=== PATIENT | female | born 1945 | race Caucasian/White ===

== ENCOUNTER 2017-12-11 19:41 | Inpatient (IN) ==
[2017-12-11] MEDS ORDERED: Aspirin 81 MG TAB.CHEW PO ONE (19:46)
--- NOTE | 2017-12-11 19:49 | Emergency Department Note ---
Disposition Clinical Impression: Chest pain Disposition: Admitted As Inpatient Condition: Fair Time of Disposition: 22:46 Chest Pain HPI - General Chief Complaint: ED Chest Pain Stated Complaint: Chest Pain Time Seen by Provider: 12/11/17 19:45 Vital Signs Reviewed: Yes Nursing Notes Reviewed: Yes - History of Present Illness HPI Narrative: 72 yo female presents from home for evaluation of chest pain. Onset 1500 today. Immediately preceeded by profound dyspnea; she was concerned she was going to pass out. Her chest heaviness is located in the left lower sternal boarder. It has been constant. Transiently associated with left jaw pain. Associated with nausea, generalized weakness and shortness of breath with exertion. PMH: HTN, HLD, asthma. ROS: Positive: As above Negative: Fever, chills, palpitations, diaphoresis, unusual back pain, abdominal pain, changes in bowel or bladder habits Severity scale (1-10): 7 - Related Data Home Medications Medication Instructions Recorded Confirmed Aspirin [Lo-Dose Aspirin EC] 81 mg PO DAILY 12/11/17 12/11/17 Atorvastatin [Lipitor] 40 mg PO HS 12/11/17 12/11/17 Chlorthalidone 12.5 mg PO DAILY 12/11/17 12/11/17 Fluticasone/Vilanterol [Breo 1 each IH DAILY 12/11/17 12/11/17 Ellipta 100-25 Mcg INH] Levothyroxine [Synthroid] 125 mcg PO DAILY 12/11/17 12/11/17 Liothyronine Sodium [Cytomel] 5 mcg PO BID 12/11/17 12/11/17 Metoprolol [Lopressor] 25 mg PO BID 12/11/17 12/11/17 Allergies Allergy/AdvReac Type Severity Reaction Status Date / Time povidone-iodine Allergy Blister Verified 12/11/17 20:55 [From Betadine] soap [From Betadine] Allergy Blister Verified 12/11/17 20:55 All systems ED: reviewed and negative except as stated. Review of Systems: As Per HPI Physical Exam Vital Signs Reviewed General: Patient is alert, oriented, and in no acute distress. Head: atraumatic, normocephalic Eye: normal appearance, no scleral icterus, no conjunctival injection ENT: mucous membranes moist, normal external ear exam Neck: normal inspection, trachea midline, full ROM Chest: normal inspection, symmetric chest rise Respiratory: Good respiratory effort. Bilateral breath sounds are clear without wheezing, crackles, or rhonchi. Cardiovascular: Regular rate and rhythm. No clicks, rubs, gallops, or murmors. Normal heart sounds. Abdomen: Bowel sounds present normoactive x-4 quadrants. Abdomen is soft, nondistended, and nontender. No guarding or rebound. No organomegaly noted. Musculoskeletal: Spontaneously moving all extremities. Skin: warm, dry, intact. Neuro: Alert and oriented x4. Sensation light touch intact. Psych: Patient's affect is appropriate for situation. Course Course Narrative: Echo 10/25/17: EV/EV echocardiogram Impressions: LVEF 60%. Moderate left ventricular diastolic dysfunction. RV is dilated in its mid-cavity. Function appears normal by TD velocity. Moderately dilated left atrium. Mild-moderate mitral regurgitation. Mild-moderate tricuspid regurgitation. Estimated RVSP is 46 mmHg. Mild pulmonary hypertension. Chest pain workup. EKG is unremarkable. Chest x-ray is unremarkable. Serum hematology is unremarkable. Serum chemistry shows elevation in creatinine slightly above baseline. I discussed the above with the patient and her multiple family and friends bedside. Discussed my concern of her risk factors and the need for overnight hospital stay for continued evaluation of her symptoms. She is agreeable to admission to hospitalist for continued evaluation of her chest pain. I discussed the patient related to hospitalist, Dr. Delgado, who agrees to accept the patient for chest pain related ACS. EKG dated December 2017 and 19:53 interpreted as sinus rhythm with rate of 77. ID [id number], QTC 4:30. Normal axis. Nonspecific ST-T changes. No previous EKG provided for comparison. Vital Signs Temperature 98.4 F 12/11/17 19:44 Pulse Rate 82 12/11/17 19:44 Respiratory Rate 20 12/11/17 19:44 Blood Pressure 187/90 12/11/17 19:44 O2 Sat by Pulse Oximetry 94 12/11/17 19:44 Temperature 98.4 F 12/11/17 20:03 Pulse Rate 73 12/11/17 21:33 Respiratory Rate 12 12/11/17 22:10 Blood Pressure 128/58 12/11/17 22:10 O2 Sat by Pulse Oximetry 98 09/08/18 21:33 Oxygen Delivery Oxygen Delivery Nasal Cannula Chest Pain - Lab Data Result diagrams: 12/11/17 19:56 12/11/17 19:56 Lab Results 12/11/17 12/11/17 12/11/17 Range/Units 19:46 19:47 19:56 WBC 11.6 H (4.3-11.1) K/mcL RBC 4.14 (3.82-4.97) M/mcL Hgb 12.6 (11.5-15.4) g/dL Hct 37.2 (35.3-44.9) % MCV 89.9 (83.0-100.0) fL MCH 30.4 (28.0-33.3) pg MCHC 33.9 (31.6-35.5) g/dL RDW 13.9 (11.5-14.5) % Plt Count 335 (140-400) K/mcL MPV 8.8 L (9.4-12.4) fL Immature Gran % 0.3 (0-4) % Seg Neutrophils % 71.3 % Lymphocytes % 21.6 % Monocytes % 5.5 % Eosinophils % 1.0 % Basophils % 0.3 % Neutrophils # 8.2 (1.6-8.9) K/mcL Lymphocytes # 2.5 (0.6-4.6) K/mcL Monocytes # 0.6 (0.0-1.3) K/mcL Eosinophils # 0.1 (0.0-0.6) K/mcL Basophils # 0.0 (0.0-0.2) K/mcL PT 13.5 H (9.4-12.1) Seconds INR 1.2 APTT 29.3 (26.0-36.0) Seconds Sodium (136-145) mEq/L Potassium (3.5-5.1) mEq/L Chloride (98-107) mEq/L Carbon Dioxide (23-29) mEq/L BUN (8-23) mg/dL Creatinine (0.60-1.20) mg/dL Est GFR ( Amer) (> 60) Est GFR (Non-Af Amer) (> 60) BUN/Creatinine Ratio (6-26) Glucose (70-105) mg/dL Calculated Osmolality (280-300) Calcium (8.6-10.3) mg/dL Troponin I (< 0.04) ng/mL B-Natriuretic Peptide 99 (Less than 100) pg/mL 12/11/17 Range/Units 19:56 WBC (4.3-11.1) K/mcL RBC (3.82-4.97) M/mcL Hgb (11.5-15.4) g/dL Hct (35.3-44.9) % MCV (83.0-100.0) fL MCH (28.0-33.3) pg MCHC (31.6-35.5) g/dL RDW (11.5-14.5) % Plt Count (140-400) K/mcL MPV (9.4-12.4) fL Immature Gran % (0-4) % Seg Neutrophils % % Lymphocytes % % Monocytes % % Eosinophils % % Basophils % % Neutrophils # (1.6-8.9) K/mcL Lymphocytes # (0.6-4.6) K/mcL Monocytes # (0.0-1.3) K/mcL Eosinophils # (0.0-0.6) K/mcL Basophils # (0.0-0.2) K/mcL PT (9.4-12.1) Seconds INR APTT (26.0-36.0) Seconds Sodium 134 L (136-145) mEq/L Potassium 3.7 (3.5-5.1) mEq/L Chloride 97 L (98-107) mEq/L Carbon Dioxide 26 (23-29) mEq/L BUN 30 H (8-23) mg/dL Creatinine 1.28 H (0.60-1.20) mg/dL Est GFR ( Amer) 50 L (> 60) Est GFR (Non-Af Amer) 41 L (> 60) BUN/Creatinine Ratio 23 (6-26) Glucose 107 H (70-105) mg/dL Calculated Osmolality 285 (280-300) Calcium 8.7 (8.6-10.3) mg/dL Troponin I < 0.03 (< 0.04) ng/mL B-Natriuretic Peptide (Less than 100) pg/mL Heart Score - Score History: Moderately Suspicious EKG: Non Specific repolarisation Disturbance Age: Greater than 65 Risk Factors: Equal/Greater than 3 risk factor or history of atherosclerotic disease Troponin: Less than normal limit HEART Score Total: 6
[2017-12-11 20:27] LABS: Basophils % 0.3 %; Eosinophils # 0.1 K/mcL (0.0-0.6); Hematocrit 37.2 % (35.3-44.9); Hemoglobin 12.6 g/dL (11.5-15.4); Immature Granulocytes % 0.3 % (0-4); Lymphocytes # 2.5 K/mcL (0.6-4.6); Lymphocytes % 21.6 %; Mean Corpuscular HGB Conc 33.9 g/dL (31.6-35.5); Mean Corpuscular Hemoglobin 30.4 pg (28.0-33.3); Mean Corpuscular Volume 89.9 fL (83.0-100.0); Mean Platelet Volume 8.8 fL (9.4-12.4); Monocytes # 0.6 K/mcL (0.0-1.3); Monocytes % 5.5 %; Neutrophils # 8.2 K/mcL (1.6-8.9); Platelet Count 335 K/mcL (140-400); Red Blood Count 4.14 M/mcL (3.82-4.97); Red Cell Distribution Width 13.9 % (11.5-14.5); Segmented Neutrophils % 71.3 %
[2017-12-11 20:32] LABS: INR 1.2; Prothrombin Time 13.5 Seconds (9.4-12.1)
[2017-12-11 20:34] LABS: Activated Partial Thrombo Time 29.3 Seconds (26.0-36.0)
[2017-12-11 20:37] LABS: Troponin I < 0.03 ng/mL (< 0.04)
[2017-12-11 20:38] LABS: BUN/Creatinine Ratio 23 (6-26); Blood Urea Nitrogen 30 mg/dL (8-23); Calcium 8.7 mg/dL (8.6-10.3); Carbon Dioxide 26 mEq/L (23-29); Chloride 97 mEq/L (98-107); Glucose 107 mg/dL (70-105); Osmolality,Calculated 285 (280-300); Potassium 3.7 mEq/L (3.5-5.1); Sodium 134 mEq/L (136-145); eGFR For Non-African Americans 41 (> 60)
[2017-12-11] MEDS: Nitroglycerin 0.4 MG TAB.SUBL SL STA ×2 (20:44→20:56)
[2017-12-11] MEDS ORDERED: *HR* Morphine 2 MG/ML SYRINGE IVP ONE (21:10)
[2017-12-11] MEDS ORDERED: Nitroglycerin 1 INCH/GM PACKET TP ONE (21:10)
[2017-12-11] MEDS ORDERED: Ondansetron 4 MG/2 ML VIAL IVP ONE (21:10)
--- NOTE | 2017-12-11 21:17 | Emergency Department Note ---
Disposition Clinical Impression: Chest pain Qualifiers: Chest pain type: unspecified Qualified Code(s): R07.9 - Chest pain, unspecified Disposition: Admitted As Inpatient Condition: Fair Chest Pain HPI - General Chief Complaint: ED Chest Pain Stated Complaint: Chest Pain Time Seen by Provider: 12/11/17 19:45 - History of Present Illness Severity scale (1-10): 6 - Related Data Home Medications Medication Instructions Recorded Confirmed Aspirin [Lo-Dose Aspirin EC] 81 mg PO DAILY 12/11/17 12/11/17 Atorvastatin [Lipitor] 40 mg PO HS 12/11/17 12/11/17 Chlorthalidone 12.5 mg PO DAILY 12/11/17 12/11/17 Fluticasone/Vilanterol [Breo 1 each IH DAILY 12/11/17 12/11/17 Ellipta 100-25 Mcg INH] Levothyroxine [Synthroid] 125 mcg PO DAILY 12/11/17 12/11/17 Liothyronine Sodium [Cytomel] 5 mcg PO BID 12/11/17 12/11/17 Metoprolol [Lopressor] 25 mg PO BID 12/11/17 12/11/17 Allergies Allergy/AdvReac Type Severity Reaction Status Date / Time povidone-iodine Allergy Blister Verified 12/11/17 20:55 [From Betadine] soap [From Betadine] Allergy Blister Verified 12/11/17 20:55 Chest Pain PMH - Past Medical History Medical history: Reports: asthma, CHF, COPD - Social History Smoking Status: Former smoker Alcohol use: Reports: none Drug use: Reports: none Course Vital Signs Temperature 98.4 F 12/11/17 19:44 Pulse Rate 82 12/11/17 19:44 Respiratory Rate 20 12/11/17 19:44 Blood Pressure 187/90 12/11/17 19:44 O2 Sat by Pulse Oximetry 94 12/11/17 19:44 Temperature 98.6 F 12/11/17 22:46 Pulse Rate 85 12/11/17 22:46 Respiratory Rate 17 12/11/17 22:46 Blood Pressure 131/66 12/11/17 22:46 O2 Sat by Pulse Oximetry 95 12/12/17 00:10 Oxygen Delivery Oxygen Delivery Nasal Cannula Chest Pain - Lab Data Result diagrams: 12/11/17 19:56 12/11/17 19:56 Lab Results 12/11/17 12/11/17 12/11/17 Range/Units 19:46 19:47 19:56 WBC 11.6 H (4.3-11.1) K/mcL RBC 4.14 (3.82-4.97) M/mcL Hgb 12.6 (11.5-15.4) g/dL Hct 37.2 (35.3-44.9) % MCV 89.9 (83.0-100.0) fL MCH 30.4 (28.0-33.3) pg MCHC 33.9 (31.6-35.5) g/dL RDW 13.9 (11.5-14.5) % Plt Count 335 (140-400) K/mcL MPV 8.8 L (9.4-12.4) fL Immature Gran % 0.3 (0-4) % Seg Neutrophils % 71.3 % Lymphocytes % 21.6 % Monocytes % 5.5 % Eosinophils % 1.0 % Basophils % 0.3 % Neutrophils # 8.2 (1.6-8.9) K/mcL Lymphocytes # 2.5 (0.6-4.6) K/mcL Monocytes # 0.6 (0.0-1.3) K/mcL Eosinophils # 0.1 (0.0-0.6) K/mcL Basophils # 0.0 (0.0-0.2) K/mcL PT 13.5 H (9.4-12.1) Seconds INR 1.2 APTT 29.3 (26.0-36.0) Seconds Sodium (136-145) mEq/L Potassium (3.5-5.1) mEq/L Chloride (98-107) mEq/L Carbon Dioxide (23-29) mEq/L BUN (8-23) mg/dL Creatinine (0.60-1.20) mg/dL Est GFR ( Amer) (> 60) Est GFR (Non-Af Amer) (> 60) BUN/Creatinine Ratio (6-26) Glucose (70-105) mg/dL Calculated Osmolality (280-300) Calcium (8.6-10.3) mg/dL Troponin I (< 0.04) ng/mL B-Natriuretic Peptide 99 (Less than 100) pg/mL 12/11/17 Range/Units 19:56 WBC (4.3-11.1) K/mcL RBC (3.82-4.97) M/mcL Hgb (11.5-15.4) g/dL Hct (35.3-44.9) % MCV (83.0-100.0) fL MCH (28.0-33.3) pg MCHC (31.6-35.5) g/dL RDW (11.5-14.5) % Plt Count (140-400) K/mcL MPV (9.4-12.4) fL Immature Gran % (0-4) % Seg Neutrophils % % Lymphocytes % % Monocytes % % Eosinophils % % Basophils % % Neutrophils # (1.6-8.9) K/mcL Lymphocytes # (0.6-4.6) K/mcL Monocytes # (0.0-1.3) K/mcL Eosinophils # (0.0-0.6) K/mcL Basophils # (0.0-0.2) K/mcL PT (9.4-12.1) Seconds INR APTT (26.0-36.0) Seconds Sodium 134 L (136-145) mEq/L Potassium 3.7 (3.5-5.1) mEq/L Chloride 97 L (98-107) mEq/L Carbon Dioxide 26 (23-29) mEq/L BUN 30 H (8-23) mg/dL Creatinine 1.28 H (0.60-1.20) mg/dL Est GFR ( Amer) 50 L (> 60) Est GFR (Non-Af Amer) 41 L (> 60) BUN/Creatinine Ratio 23 (6-26) Glucose 107 H (70-105) mg/dL Calculated Osmolality 285 (280-300) Calcium 8.7 (8.6-10.3) mg/dL Troponin I < 0.03 (< 0.04) ng/mL B-Natriuretic Peptide (Less than 100) pg/mL Attestation Statement - Attestation Attestation: I have discussed the case with the resident/mid level provider. I have personally performed a history, physical exam, and my own medical decision making. I have reviewed the note and agree with the findings and plan. Resident Orlando Catalan. Patient here for evaluation of chest pain and near-syncope. Patient developed chest pain which she describes as it a week in the center of her chest. Patient has had a previous echo but no previous cardiac workup. History concerning for ACS as well as her dizziness and concern for need for syncope evaluation. Patient will be admitted to the hospital service. No acute distress Regular rate and rhythm Clear to auscultation bilaterally Mild edema in the lower extremities Please see resident physician's note for further details and disposition.
[2017-12-11] MEDS ORDERED: Naloxone 0.4 MG/ML INJ IVP PRN (23:44)
[2017-12-11] MEDS ORDERED: 0.9 % Sodium Chloride 1,000 ML IVC ONE (23:55)
--- NOTE | 2017-12-12 00:09 | Internal Med History&Physical ---
Date of Encounter: 12/12/17 Time of Encounter: 23:00 Internal Medicine - H&P: HPI Chief complaint: Chest pain Admitted From: Emergency Dept Plans for Post Hospital Care: Home History of present illness: Ms. Lopez is a 72 year old female Patient states that she was attending a family reunion today when she felt nauseous. She also began having tunnel vision, felt weak and had to sit down. She Went to the rest room, vomited and had an episode of diarrhea. She and her then went home, where she had another episode of weakness and diarrhea. She tried laying down, but noted she was having chest pain with radiation to her neck. She is not sure when exactly she started having chest pain, but it concerned her enough that she went to the ER for further evaluation. She is not aware of any other attendees at the [facility] getting sick. She denies eating undercooked food or potato salad. She was not hydrating well, only drinking a soda or two during the day. She denies having chest pain like this before, but has had near syncopal episodes in the past. In the ER chest x-ray had no acute findings, EKG was NSR with Qtc of 430. No ST elevations. Her BUN and creatinine were elevated and GFR was 41. She denies history of renal problems. Troponins <0.03, BNP of 99. Upon my assessment patient denies chest pain, abdominal pain, nausea, vomiting, dizziness, diarrhea and constipation. Review of her prior medical history shows she had an echocardiogram 10/2017 that showed EF of 60%. She is currently being evaluated for GLORIA. She uses 2L of oxygen at night. Past Med Surg Social Fam HX - Past Medical History Medical history: asthma, CHF, COPD - Past Surgical History Surgical History: appendectomy, knee replacement, thyroidectomy Additional surgical history: wrist surgery for carpal tunnel. - Social History Smoking Status: Former smoker Alcohol use: none Drug use: none Internal Medicine - H&P: Meds Aspirin [Lo-Dose Aspirin EC] 81 mg PO DAILY 12/11/17 [History] Atorvastatin [Lipitor] 40 mg PO HS 12/11/17 [History] Chlorthalidone 12.5 mg PO DAILY 12/11/17 [History] Fluticasone/Vilanterol [Breo Ellipta 100-25 Mcg INH] 1 each IH DAILY 12/11/17 [ History] Levothyroxine [Synthroid] 125 mcg PO DAILY 12/11/17 [History] Liothyronine Sodium [Cytomel] 5 mcg PO BID 12/11/17 [History] Metoprolol [Lopressor] 25 mg PO BID 12/11/17 [History] 3 Allergy/AdvReac Type Severity Reaction Status Date / Time povidone-iodine Allergy Blister Verified 12/11/17 20:55 [From Betadine] soap [From Betadine] Allergy Blister Verified 12/11/17 20:55 All Systems PM: A 10-system review of systems was performed and is negative for pertinent findings except as documented above in the HPI. - Constitutional Vitals: Temp Pulse Resp BP Pulse Ox 98.6 F 85 17 131/66 95 12/11/17 22:46 12/11/17 22:46 12/11/17 22:46 12/11/17 22:46 12/11/17 22:46 General appearance: Present: cooperative, A&O X 3, pleasant, no acute distress, answers questions appropriately Exam: as above - Head Head exam: Present: normal inspection - Eye Eye exam: Present: EOMI, normal appearance - Neck Neck exam general surgery: Present: full ROM - Respiratory Respiratory exam: Present: CTAB. Absent: chest wall tenderness, decreased breath sounds, respiratory distress, wheezes - Cardiovascular Cardiovascular exam: Present: RRR. Absent: diastolic murmur, systolic murmur - GI/Abdominal GI/Abdominal exam: Present: normal bowel sounds, soft. Absent: tenderness - Extremities Exam Extremities exam: Present: pedal edema, warm, radial pulses palpable and symmetrical. Absent: calf tenderness, tenderness Additional comments: mild edema +1 - Neurological Exam Neurological exam: Present: no focal deficits, strengths equal and symetr throughout. Absent: motor sensory deficit, facial droop, speech deficit - Skin Skin exam: Present: dry, normal color, warm Internal Med - H&P Results - Labs CBC & Chem 7: 12/12/17 02:12 12/12/17 01:25 - Assessment and plan (1) Chest pain Current Visit: Yes Status: Acute Assessment and plan: Currently pain resolved. Recent echocardiogram from 2 months ago showed EF of 60 %. Continue to trend troponins spray blender Consider stress test in the morning Qualifiers: Chest pain type: unspecified Qualified Code(s): R07.9 - Chest pain, unspecified (2) Near syncope Current Visit: Yes Status: Acute Assessment and plan: Could be secondary to dehydration, patient was out at a picnic all day and not adequate fluids. Patient's BUN and creatinine elevated on initial lab work in ER. Orthostatic vitals in AM IV fluids tonight Continue to monitor Repeat labs in the morning. (3) Pulmonary nodule Current Visit: Yes Status: Acute Assessment and plan: As evidenced by patient's chest CT from 09/2017, she as multiple nodules both calcified and non-calcified. Follow radiology recommendations for repeat CT in 6-12 months. (4) Hypothyroid Current Visit: Yes Status: Acute Assessment and plan: continue home meds. Qualifiers: Qualified Code(s): E89.0 - Postprocedural hypothyroidism (5) HLD (hyperlipidemia) Current Visit: Yes Status: Acute Assessment and plan: Continue home meds. Qualifiers: Hyperlipidemia type: mixed hyperlipidemia Qualified Code(s): E78.2 - Mixed hyperlipidemia - Time Spent With Patient Total time spent is greater than 50% in coordination of care (as documented) at patient's floor/unit and/or counseling patient: 25 - 35 minutes
[2017-12-12 02:02] LABS: Calcium 8.4 mg/dL (8.6-10.3); Potassium 3.6 mEq/L (3.5-5.1)
[2017-12-12 02:21] LABS: Hematocrit 34.2 % (35.3-44.9); Hemoglobin 11.4 g/dL (11.5-15.4); Mean Corpuscular HGB Conc 33.3 g/dL (31.6-35.5); Mean Corpuscular Hemoglobin 30.5 pg (28.0-33.3); Mean Corpuscular Volume 91.4 fL (83.0-100.0); Mean Platelet Volume 8.7 fL (9.4-12.4); Platelet Count 272 K/mcL (140-400); Red Blood Count 3.74 M/mcL (3.82-4.97)
[2017-12-12] MEDS: *HR* Heparin 5,000 UNIT/ML VIAL SQ SCH ×2 (06:35→17:13)
[2017-12-12] MEDS: Aspirin Enteric Coated 81 MG Tablet PO SCH (09:16)
[2017-12-12] MEDS ORDERED: Acetaminophen 325 MG TABLET PO PRN (12:18)
[2017-12-12] MEDS ORDERED: *HR* HYDROcodone/Acet 5/325 mg TABLET PO PRN (12:18)
[2017-12-12] MEDS ORDERED: Nitroglycerin 0.4 MG TAB.SUBL SL PRN (12:19)
--- NOTE | 2017-12-12 12:28 | Internal Med Progress Note ---
Hospitalist Progress Note - Encounter Date of Encounter: 12/12/17 Time of Encounter: 08:20 - Subjective Interval History: Patient is awake and alert. Denies any chest pain at this time. Her chest pain last night resolved after she received nitroglycerin. She describes it as a pressure sensation. She denies any shortness of breath at this time. No nausea or vomiting. - Exam Vitals: Temp Pulse Resp BP Pulse Ox 99.0 F 59 17 143/70 93 12/12/17 11:56 12/12/17 11:56 12/12/17 11:56 12/12/17 11:56 12/12/17 11:56 Exam: General: Patient is alert, no acute distress, oriented x 3 Respiratory: Good respiratory effort. Normal breath sounds. Decreased air entry at both bases. No wheezing or crackles. Cardiovascular: Regular rate and rhythm. s1 and s2 normal No clicks, rubs, gallops, or murmurs. No pedal edema Abdomen: Abdomen is soft, nontender. Bowel sounds are present Musculoskeletal: Spontaneously moving all extremities Skin: warm, dry, intact. Neuro: Alert oriented x 3 normal cranial nerves, no focal deficits - Assessment and Plan (1) Chest pain Current Visit: Yes Status: Acute Assessment and Plan: Precordial chest pressure. Atypical but patient does have risk factors. We will obtain cardiac stress test in morning. Keep nothing by mouth after midnight. Patient had recent echocardiogram which showed normal ejection fraction. Troponins have been negative. Continue monitoring with telemetry. (2) HLD (hyperlipidemia) Current Visit: Yes Status: Chronic Assessment and Plan: Will check lipid profile. Continue Lipitor (3) HTN (hypertension) Current Visit: Yes Status: Chronic Assessment and Plan: Blood pressure was severely elevated initially but has improved. We will continue current medications including chlorthalidone and metoprolol. (4) Hypothyroid Current Visit: Yes Status: Chronic Assessment and Plan: Continue levothyroxine and liothyronine (5) Near syncope Current Visit: Yes Status: Acute Assessment and Plan: No new episodes of syncope. Continue to monitor with telemetry. Check orthostatic vital signs and carotid Dopplers. (6) Pulmonary nodule Current Visit: Yes Status: Acute Assessment and Plan: Patient will need repeat CT scan in 6-12 months. - Time Spent with Patient Total time spent is greater than 50% in coordination of care (as documented) at patient's floor/unit and/or counseling patient: Internal Medicine: Result - Labs CBC & Chem 7: 12/12/17 02:12 12/12/17 01:25 Labs: Short CBC 12/12/17 Range/Units 02:12 WBC 9.6 (4.3-11.1) K/mcL Hgb 11.4 L (11.5-15.4) g/dL Hct 34.2 L (35.3-44.9) % Plt Count 272 (140-400) K/mcL BMP 12/12/17 01:25 Sodium 136 Potassium 3.6 Chloride 98 Carbon Dioxide 29 BUN 32 H Creatinine 1.15 Glucose 123 H Calcium 8.4 L Cardiac Enzymes 12/12/17 12/12/17 Range/Units 01:25 08:11 Troponin I < 0.03 < 0.03 (< 0.04) ng/mL - ABG Interpretation ABG results: PT/INR, D-dimer PT 13.5 Seconds (9.4-12.1) H 12/11/17 19:46 Consult Discharge Plan - Plan Referrals: Donna Catalan MD [Primary Care Provider] - Tavares Hunter DO [Family Provider] - (1) Chest pain Qualifiers: Chest pain type: precordial pain Qualified Code(s): R07.2 - Precordial pain (2) HLD (hyperlipidemia) Qualifiers: Hyperlipidemia type: mixed hyperlipidemia Qualified Code(s): E78.2 - Mixed hyperlipidemia (3) HTN (hypertension) Qualifiers: Hypertension type: essential hypertension Qualified Code(s): I10 - Essential (primary) hypertension (4) Hypothyroid Qualifiers: Qualified Code(s): E89.0 - Postprocedural hypothyroidism
[2017-12-13 05:22] LABS: Chol/HDL Ratio 4.3 (0-4.9)
[2017-12-13] MEDS ORDERED: Regadenoson 0.4 MG/5 ML SYRINGE IVP ONE (05:46)
[2017-12-13] MEDS: *HR* Heparin 5,000 UNIT/ML VIAL SQ SCH ×2 (06:08→18:04)
--- NOTE | 2017-12-13 09:01 | Internal Med Progress Note ---
<Marty Dunbar - Last Filed: 12/13/17 11:48> Hospitalist Progress Note - Encounter Date of Encounter: 12/13/17 Time of Encounter: 10:30 - Exam Vitals: Temp Pulse Resp BP Pulse Ox 99.3 F 67 16 127/73 93 12/13/17 11:08 12/13/17 11:08 12/13/17 11:08 12/13/17 11:08 12/13/17 11:08 - Assessment and Plan (1) Chest pain Current Visit: Yes Status: Acute (2) HLD (hyperlipidemia) Current Visit: Yes Status: Chronic (3) HTN (hypertension) Current Visit: Yes Status: Chronic (4) Hypothyroid Current Visit: Yes Status: Chronic (5) Near syncope Current Visit: Yes Status: Acute (6) Pulmonary nodule Current Visit: Yes Status: Acute - Time Spent with Patient Total time spent is greater than 50% in coordination of care (as documented) at patient's floor/unit and/or counseling patient: Internal Medicine: Result - Labs CBC & Chem 7: 12/12/17 02:12 12/13/17 09:36 Labs: BMP 12/13/17 09:36 Sodium 135 L Potassium 3.8 Chloride 98 Carbon Dioxide 31 H BUN 15 Creatinine 0.83 Glucose 151 H Calcium 8.5 L - ABG Interpretation ABG results: PT/INR, D-dimer PT 13.5 Seconds (9.4-12.1) H 12/11/17 19:46 Consult Discharge Plan - Plan Referrals: Tavares Hunter DO [Family Provider] - Donna Catalan MD [Primary Care Provider] - - Attending Attestation I saw evaluated and examined this patient and my medical decision-making was reviewed with the Resident Physician, Kendall Smith. I agree with the documented findings, disposition and treatment plan as described except to any changes set forth below. We independently had [id number] contact with the patient. Patient complains of chest pressure that began when she was having her stress test earlier today. It is central in location. Not radiating at this time. No new episodes of nausea or vomiting. No dizziness or lightheadedness. No palpitations. On exam, patient is awake and alert. Heart sounds are normal. Breath sounds are also normal. No lower extremity edema. No abdominal tenderness. Chest pain: Precordial chest pressure. Stress test in progress. Troponins have been negative. Treat symptomatically with nitroglycerin Essential hypertension: Well controlled at this time. Hyperlipidemia: continue Lipitor. <Kendall Smith - Last Filed: 12/13/17 17:51> Hospitalist Progress Note - Encounter Date of Encounter: 12/13/17 - Subjective Interval History: Interval history: Patient presented to the ED 12/11 with 1 day of nausea/vomiting/diarrhea at a family picnic. No known sick contacts/others sick after picnic. She complained of chest pain radiating to the neck. She was evaluated in the ED for ACS with negative troponin, CXR showed stable cardiomegaly, BNP 99. Per ROS: she denied orthopnea, LE swelling, shortness of breath. ECHO 2 months ago shows EF of 60%. She was admitted for chest pain rule-out. At the time of my evaluation, patient complains of a non-productive cough, decreased chest symptoms otherwise. Denies fevers, n/v/d, or abdominal pain. She recently underwent stress testing, results pending. - Exam Vitals: Temp Pulse Resp BP Pulse Ox 98.2 F 58 17 104/47 94 12/13/17 07:02 12/13/17 07:02 12/13/17 07:02 12/13/17 07:02 12/13/17 07:02 Exam: General: Patient is alert, no acute distress, oriented x 3 Head: normocephalic, atraumatic Respiratory: Good respiratory effort. Normal breath sounds. Diminished breath sounds bilateral bases. No wheezing or crackles. Cardiovascular: Regular rate and rhythm. s1 and s2 normal No clicks, rubs, gallops, or murmurs. No pedal edema no jvd. Abdomen: Abdomen is soft, nontender. Bowel sounds are present Musculoskeletal: Spontaneously moving all extremities Skin: warm, dry, intact. Neuro: Alert oriented x 3, no slurring of speech, facial droop - Assessment and Plan (1) Chest pain Current Visit: Yes Status: Acute Assessment and Plan: Patient denies chest pain, shortness of breath, or dizziness Troponin has been negative, part 1 of stress test completed today, after which she says she feels okay, no worsening of admission symptoms. LDL 80, hgb a1c 5.6 ECG shows NSR with nonspecific st changes. CXR shows stable cardiomegaly, bnp 99 echo 10/25/17 LVEF of 60% P: Continue ACS workup Two part stress test; NPO at midnight for second half tomorrow AM (2) Near syncope Current Visit: Yes Status: Acute Assessment and Plan: Carotid doppler with 40-59% stenosis bilaterally, unlikely contributor. Recent ECHO with preserved EF. Continue telemetry. (3) Pulmonary nodule Current Visit: Yes Status: Acute Assessment and Plan: 3.7mm nodule noncalcified, nonspecific Repeat CT in 6-12 months (4) Hypothyroid Current Visit: Yes Status: Chronic Assessment and Plan: Continue synthetic T4 and T3 (5) HLD (hyperlipidemia) Current Visit: Yes Status: Chronic Assessment and Plan: LDL therapeutic range Continue statin (6) HTN (hypertension) Current Visit: Yes Status: Chronic Assessment and Plan: Normotensive; continuing bb and thiazide DVT Prophylaxis: heparin sq q12h - Time Spent with Patient Total time spent is greater than 50% in coordination of care (as documented) at patient's floor/unit and/or counseling patient: Internal Medicine: Result - Labs CBC & Chem 7: 12/12/17 02:12 12/13/17 09:36 - ABG Interpretation ABG results: PT/INR, D-dimer PT 13.5 Seconds (9.4-12.1) H 12/11/17 19:46 <Marty Dunbar - Last Filed: 12/13/17 11:48> (1) Chest pain Qualifiers: Chest pain type: precordial pain Qualified Code(s): R07.2 - Precordial pain (2) HLD (hyperlipidemia) Qualifiers: Hyperlipidemia type: mixed hyperlipidemia Qualified Code(s): E78.2 - Mixed hyperlipidemia (3) HTN (hypertension) Qualifiers: Hypertension type: essential hypertension Qualified Code(s): I10 - Essential (primary) hypertension (4) Hypothyroid Qualifiers: Qualified Code(s): E89.0 - Postprocedural hypothyroidism <Kendall Smith - Last Filed: 12/13/17 17:51> (1) Chest pain Qualifiers: Chest pain type: precordial pain Qualified Code(s): R07.2 - Precordial pain (5) HLD (hyperlipidemia) Qualifiers: Hyperlipidemia type: mixed hyperlipidemia Qualified Code(s): E78.2 - Mixed hyperlipidemia (6) HTN (hypertension) Qualifiers: Hypertension type: essential hypertension Qualified Code(s): I10 - Essential (primary) hypertension
[2017-12-13 10:22] LABS: BUN/Creatinine Ratio 18 (6-26); Blood Urea Nitrogen 15 mg/dL (8-23); Calcium 8.5 mg/dL (8.6-10.3); Carbon Dioxide 31 mEq/L (23-29); Chloride 98 mEq/L (98-107); Glucose 151 mg/dL (70-105); Osmolality,Calculated 284 (280-300); Potassium 3.8 mEq/L (3.5-5.1); Sodium 135 mEq/L (136-145); eGFR For Non-African Americans > 60 (> 60)
[2017-12-13 10:56] LABS: Estimated Average Glucose 114 mg/dl; Hemoglobin A1C 5.6 %
[2017-12-13] MEDS: Aspirin Enteric Coated 81 MG Tablet PO SCH (11:39)
[2017-12-13] MEDS: Benzonatate 100 MG CAPSULE PO PRN (15:03)
[2017-12-14 05:14] LABS: Hematocrit 34.6 % (35.3-44.9); Hemoglobin 11.1 g/dL (11.5-15.4); Mean Corpuscular HGB Conc 32.1 g/dL (31.6-35.5); Mean Corpuscular Hemoglobin 29.7 pg (28.0-33.3); Mean Corpuscular Volume 92.5 fL (83.0-100.0); Mean Platelet Volume 8.9 fL (9.4-12.4); Platelet Count 239 K/mcL (140-400); Red Blood Count 3.74 M/mcL (3.82-4.97); Red Cell Distribution Width 13.8 % (11.5-14.5)
[2017-12-14 05:32] LABS: BUN/Creatinine Ratio 21 (6-26); Blood Urea Nitrogen 17 mg/dL (8-23); Calcium 8.3 mg/dL (8.6-10.3); Carbon Dioxide 30 mEq/L (23-29); Chloride 98 mEq/L (98-107); Glucose 94 mg/dL (70-105); Osmolality,Calculated 285 (280-300); Potassium 3.6 mEq/L (3.5-5.1); Sodium 137 mEq/L (136-145); eGFR For Non-African Americans > 60 (> 60)
[2017-12-14] MEDS: *HR* Heparin 5,000 UNIT/ML VIAL SQ SCH (06:14)
[2017-12-14] MEDS: Benzonatate 100 MG CAPSULE PO PRN ×2 (08:48→18:32)
[2017-12-14] MEDS: Aspirin Enteric Coated 81 MG Tablet PO SCH (08:49)
--- NOTE | 2017-12-14 13:20 | Cardiology Consult Note ---
<Anna,Dominick R - Last Filed: 12/14/17 13:17> Date of Encounter: 12/14/17 Time of Encounter: 13:17 Assessment and Plan (1) Abnormal stress test Current Visit: Yes Status: Acute Admitted with chest pressure with radiation to left neck, associated n/v/d, symptom relief with nitro and morphine. Recurrent CP yesterday afternoon. Troponins negative. TTE EF preserved, moderate LVDD, mild-moderate MR and TR. 2 day stress test obtained--possible ischemia in mid-distal inferolateral wall and ischemia could not be excluded in mid anterior wall. Risk factors for CAD include obesity, HTN, HLD, prior tobacco abuse and premature family hx. Reports mother had [place] in 40s and son from [place] in his 40s. Pt is already on ASA, Statin, BB at home. Discussed medical management and starting [facility] with close outpt follow-up vs. [facility]. R/B/A discussed. Pt prefers to proceed with [facility] inpt. [facility] today. Continue to follow. (2) Chest pain Current Visit: Yes Status: Acute As above, abnormal stress test. LHC today. Qualifiers: Chest pain type: unspecified Qualified Code(s): R07.9 - Chest pain, unspecified Discussion w patient/family: The assessment and plan as outlined above was discussed with the patient and/or family members who expressed understanding and agreement. All questions were answered. Thank you for involving us in the care of your patient. Please call with any questions. I will discuss all the above with Dr. Morales and make changes as necessary History of Present Illness Consult date: 12/14/17 Requesting physician: Ramiro Luo Consult reason: abnormal stress Chief complaint: chest pain, n/v/d, near syncope History of present illness: Ms. Lopez is a 72 year old female with PMH of COPD on nocturnal O2 2L, hx of tobacco abuse, HTN, HLD, hypothyroidism that was attending a family reunion 2 days ago when she felt nauseous, began having tunnel vision, felt weak and had to sit down. She Went to the rest room, vomited and had an episode of diarrhea. She and her then went home, where she had more episodes of vomiting and diarrhea, then developed chest pressure with radiation to her neck. CP was relieved with nitro and morphine in ED. She had recurrent CP yesterday with radiation to left neck. Troponins negative. 2 day stress test obtained-- possible ischemia in mid-distal inferolateral wall and ischemia could not be excluded in mid anterior wall. Cardiology consulted for further recs. Past Med Surg Social Fam HX - Past Medical History Medical history: asthma, CHF, COPD - Past Surgical History Surgical History: appendectomy, knee replacement, thyroidectomy Additional surgical history: wrist surgery for carpal tunnel. - Social History Smoking Status: Former smoker Alcohol use: none Drug use: none Medications and Allergies Aspirin [Lo-Dose Aspirin EC] 81 mg PO DAILY 12/11/17 [History] Atorvastatin [Lipitor] 40 mg PO HS 12/11/17 [History] Chlorthalidone 12.5 mg PO DAILY 12/11/17 [History] Fluticasone/Vilanterol [Breo Ellipta 100-25 Mcg INH] 1 each IH DAILY 12/11/17 [ History] Levothyroxine [Synthroid] 125 mcg PO DAILY 12/11/17 [History] Liothyronine Sodium [Cytomel] 5 mcg PO BID 12/11/17 [History] Metoprolol [Lopressor] 25 mg PO BID 12/11/17 [History] 3 Allergy/AdvReac Type Severity Reaction Status Date / Time povidone-iodine Allergy Blister Verified 12/11/17 20:55 [From Betadine] soap [From Betadine] Allergy Blister Verified 12/11/17 20:55 All Systems Review: The remainder of the systems were reviewed and are negative - Cardiovascular Cardiovascular: as per HPI, chest pain at rest, chest pain with exertion, dyspnea at rest, dyspnea on exertion, radiating jaw, neck or arm pain - Respiratory Respiratory: cough, dyspnea Physical Examination Vital Signs, Last 4 Hours Temp Pulse Resp BP Pulse Ox 12/14/17 10:43 98.1 F 59 16 153/67 93 Vital Signs Temp Pulse Resp BP Pulse Ox 12/14/17 10:43 98.1 F 59 16 153/67 93 12/14/17 07:49 97.8 F 63 18 161/56 92 12/14/17 03:47 98.6 F 63 16 117/68 98 12/13/17 23:11 98.5 F 67 16 133/77 95 12/13/17 18:46 98.8 F 67 16 115/60 91 12/13/17 16:13 98.2 F 61 17 117/68 92 Intake and Output 12/13/17 12/14/17 12/14/17 23:59 07:59 15:59 Output Total 300 / 300 Balance -300 / -300 Output: Urine 300 / 300 Other: Meal npo Weight 130.4 kg Patient Weight 12/14/17 23:59 Weight 130.4 kg General: Conversant, No Apparent Distress HEENT: Atraumatic, Normocephaly, Mucus Membranes Moist Neck: No JVD, Normal carotid pulses Cardiac: Reg Rate and Rhythm, Normal S1 and S2, No Murmur Lungs: Normal Breath Sounds, No Wheeze, Rales, Rhonchi Neuro: Alert and responsive, No focal deficits noted Abdomen: Soft, Non-Tender Skin: No rashes noted on visualized skin Musculoskeletal: No Chest Wall Tenderness Extremities: Other (mild LE edema) Results 12/14/17 04:01 12/14/17 04:01 Lab Results 12/14/17 12/14/17 04:01 04:01 WBC 5.7 Hgb 11.1 L Hct 34.6 L Plt Count 239 Sodium 137 Potassium 3.6 Chloride 98 Carbon Dioxide 30 H BUN 17 Creatinine 0.82 Glucose 94 Calcium 8.3 L Short CBC 12/14/17 Range/Units 04:01 WBC 5.7 (4.3-11.1) K/mcL Hgb 11.1 L (11.5-15.4) g/dL Hct 34.6 L (35.3-44.9) % Plt Count 239 (140-400) K/mcL BMP 12/14/17 Range/Units 04:01 Sodium 137 (136-145) mEq/L Potassium 3.6 (3.5-5.1) mEq/L Chloride 98 (98-107) mEq/L Carbon Dioxide 30 H (23-29) mEq/L BUN 17 (8-23) mg/dL Creatinine 0.82 (0.60-1.20) mg/dL Glucose 94 (70-105) mg/dL Calcium 8.3 L (8.6-10.3) mg/dL Active Medications Acetaminophen (Tylenol) 650 mg PO Q6HR PRN PRN Reason: Mild Pain/Fever Stop: 06/13/18 12:19 Hydrocodone Bitart/Acetaminophen (Volga 5-325 Mg) 1 tab PO Q6HR PRN PRN Reason: Moderate Pain Stop: 06/13/18 12:19 Last Admin: 12/12/17 12:53 Dose: 1 tab Aspirin (Aspirin Ec) 81 mg PO DAILY [facility] Stop: 06/13/18 09:01 Last Admin: 12/14/17 08:49 Dose: 81 mg Atorvastatin Calcium (Lipitor) 40 mg PO HS [facility] Stop: 06/13/18 21:01 Last Admin: 12/13/17 21:20 Dose: 40 mg Benzonatate (Tessalon) 100 mg PO TID PRN PRN Reason: Cough Stop: 06/14/18 13:42 Last Admin: 12/14/17 08:48 Dose: 100 mg Chlorthalidone (Chlorthalidone) 12.5 mg PO DAILY [facility] Stop: 06/13/18 09:01 Last Admin: 12/14/17 08:48 Dose: 12.5 mg Guaifenesin (Mucinex) 600 mg PO BID PRN PRN Reason: Congestion Stop: 06/14/18 10:55 Heparin Sodium (Porcine) (Heparin) 5,000 unit SQ Q12HCO [facility] Stop: 06/13/18 06:01 Last Admin: 12/14/17 06:14 Dose: 5,000 unit Levothyroxine Sodium (Synthroid) 125 mcg PO 0630 [facility] Stop: 06/13/18 06:31 Last Admin: 12/14/17 06:14 Dose: 125 mcg Liothyronine Sodium (Cytomel) 5 mcg PO DAILY [facility] Stop: 06/14/18 09:01 Last Admin: 12/14/17 08:50 Dose: 5 mcg Metoprolol Tartrate (Lopressor) 25 mg PO BID [facility] Stop: 06/13/18 09:01 Last Admin: 12/14/17 08:49 Dose: 25 mg Naloxone HCl (Narcan) 0.4 mg IVP Q2MIN PRN PRN Reason: SEE COMMENTS Stop: 06/12/18 23:45 Nitroglycerin (Nitroglycerin) 0.4 mg SL Q5MIN PRN PRN Reason: Chest Pain Stop: 06/13/18 12:20 - Imaging and Cardiology Stress Test: report reviewed Echo: report reviewed - EKG Interpretation EKG results cardiology: personally reviewed Consult Discharge Plan - Plan Referrals: Tavares Hunter DO [Family Provider] - Yuki Lockhart MD [Partnered Physician] - (office will call patient at home with follow up appointment) Donna Catalan MD [Primary Care Provider] - <Luan Morales - Last Filed: 12/14/17 19:16> Date of Encounter: 12/14/17 - Attending Attestation Patient was seen and evaluated independently by me. Findings, assessment and plan were discussed at length with patient, questions answered. Agree with nurse practitioner's documentation. Addition as follows, 72 yoCF ho hypertension hyperlipidemia hypothyroidism smoking COPD. P/w chest pressure with nausea vomiting. Negative troponin. Nuclear stress test positive for a minute to distal inferolateral wall ischemia, preserved EF. Proceeded with [facility]: RCA disease, TRACY x1 to distal RCA. Currently no complaint. Hypertensive 140s to 160s. Right groin no hematoma. Review of home medications with patient and current meds with bed nurse. A: unstable angina, single-vessel CAD, RCA DESx1, hypertension P: c/w DAPT, high intensity statin Continue with home BP meds (irbesartan 300 switch to losartan 100 qd during hospital stay) Re-eval in the morning. Cardiac rehabilitation Luan Morales MD, PhD Assessment and Plan Discussion w patient/family: The assessment and plan as outlined above was discussed with the patient and/or family members who expressed understanding and agreement. All questions were answered. Thank you for involving us in the care of your patient. Please call with any questions. History of Present Illness History of present illness: Ms. Lopez is a 72 year old female All Systems Review: The remainder of the systems were reviewed and are negative Results 12/14/17 04:01 12/14/17 04:01 Lab Results 12/14/17 12/14/17 04:01 04:01 WBC 5.7 Hgb 11.1 L Hct 34.6 L Plt Count 239 Sodium 137 Potassium 3.6 Chloride 98 Carbon Dioxide 30 H BUN 17 Creatinine 0.82 Glucose 94 Calcium 8.3 L
--- NOTE | 2017-12-14 13:29 | Internal Med Progress Note ---
<Kendall Smith - Last Filed: 12/14/17 14:54> Hospitalist Progress Note - Encounter Date of Encounter: 12/14/17 Time of Encounter: 09:30 - Subjective Interval History: Interval history: 12/14 Patient had no acute events overnight. She currently denies shortness of breath or chest pain. She is s/p part 2 of stress testing; report shows perfusion defect in inferolateral and mid-anterior wall; cardiology to see patient this afternoon. 12/13 Patient presented to the ED 12/11 with 1 day of nausea/vomiting/diarrhea at a family picnic. No known sick contacts/others sick after picnic. She complained of chest pain radiating to the neck. She was evaluated in the ED for ACS with negative troponin, CXR showed stable cardiomegaly, BNP 99. Per ROS: she denied orthopnea, LE swelling, shortness of breath. ECHO 2 months ago shows EF of 60%. She was admitted for chest pain rule-out. At the time of my evaluation, patient complains of a non-productive cough, decreased chest symptoms otherwise. Denies fevers, n/v/d, or abdominal pain. She recently underwent stress testing, results pending. - Exam Vitals: Temp Pulse Resp BP Pulse Ox 98.1 F 59 16 153/67 93 12/14/17 10:43 12/14/17 10:43 12/14/17 10:43 12/14/17 10:43 12/14/17 10:43 Exam: General: Patient is alert, no acute distress, oriented x 3, answers questions appropriately. Head: normocephalic, atraumatic Respiratory: Good respiratory effort. Normal breath sounds. Diminished breath sounds bilateral bases. No wheezing or crackles. Cardiovascular: Regular rate and rhythm. s1 and s2 normal No clicks, rubs, gallops, or murmurs. No pedal edema no jvd. Abdomen: Abdomen is soft, nontender. Bowel sounds are present Ext/Musculoskeletal: Spontaneously moving all extremities, no calf tenderness Skin: warm, dry, intact, no cyanosis, no pitting edema Neuro: Alert oriented x 3, no slurring of speech or facial droop - Assessment and Plan (1) Chest pain Current Visit: Yes Status: Acute Assessment and Plan: s/p 2 part stress test Gated EF of >70% Perfusion defect of inferolateral and mid-anterior wall P: Cardiology to see patient this afternoon - eval for LHC versus conservative management (2) Near syncope Current Visit: Yes Status: Acute Assessment and Plan: Recent hx of N/V/D with tunnel vision ACS risk factors of hx of CHF, COPD, smoke history, age, obesity Carotid doppler shows mild-mod stenosis bilaterally P: As above for cardiac workup (3) Pulmonary nodule Current Visit: Yes Status: Acute Assessment and Plan: F/u in 6-12 months for 3.7mm noncalcified nodule (4) Hypothyroid Current Visit: Yes Status: Chronic Assessment and Plan: Continue synthetic T4 and T3 (5) HLD (hyperlipidemia) Current Visit: Yes Status: Chronic Assessment and Plan: LDL well controlled Continue statin (6) HTN (hypertension) Current Visit: Yes Status: Chronic Assessment and Plan: on bb and thiazide continuing - Time Spent with Patient Total time spent is greater than 50% in coordination of care (as documented) at patient's floor/unit and/or counseling patient: Internal Medicine: Result - Labs CBC & Chem 7: 12/14/17 04:01 12/14/17 04:01 Labs: Short CBC 12/14/17 Range/Units 04:01 WBC 5.7 (4.3-11.1) K/mcL Hgb 11.1 L (11.5-15.4) g/dL Hct 34.6 L (35.3-44.9) % Plt Count 239 (140-400) K/mcL BMP 12/14/17 04:01 Sodium 137 Potassium 3.6 Chloride 98 Carbon Dioxide 30 H BUN 17 Creatinine 0.82 Glucose 94 Calcium 8.3 L - ABG Interpretation ABG results: PT/INR, D-dimer PT 13.5 Seconds (9.4-12.1) H 12/11/17 19:46 Consult Discharge Plan - Plan Referrals: Tavares Hunetr DO [Family Provider] - Yuki Lockhart MD [Partnered Physician] - (office will call patient at home with follow up appointment) Donna Catalan MD [Primary Care Provider] - <Ramiro Luo - Last Filed: 12/14/17 17:34> Hospitalist Progress Note - Encounter Date of Encounter: 12/14/17 - Exam Vitals: Temp Pulse Resp BP Pulse Ox 98.1 F 59 16 153/67 93 12/14/17 10:43 12/14/17 10:43 12/14/17 10:43 12/14/17 10:43 12/14/17 10:43 - Assessment and Plan (1) Chest pain Current Visit: Yes Status: Acute (2) Near syncope Current Visit: Yes Status: Acute (3) Pulmonary nodule Current Visit: Yes Status: Acute (4) Hypothyroid Current Visit: Yes Status: Chronic (5) HLD (hyperlipidemia) Current Visit: Yes Status: Chronic (6) HTN (hypertension) Current Visit: Yes Status: Chronic - Time Spent with Patient Total time spent is greater than 50% in coordination of care (as documented) at patient's floor/unit and/or counseling patient: Internal Medicine: Result - Labs CBC & Chem 7: 12/14/17 04:01 12/14/17 04:01 Labs: Short CBC 12/14/17 Range/Units 04:01 WBC 5.7 (4.3-11.1) K/mcL Hgb 11.1 L (11.5-15.4) g/dL Hct 34.6 L (35.3-44.9) % Plt Count 239 (140-400) K/mcL BMP 12/14/17 04:01 Sodium 137 Potassium 3.6 Chloride 98 Carbon Dioxide 30 H BUN 17 Creatinine 0.82 Glucose 94 Calcium 8.3 L - ABG Interpretation ABG results: PT/INR, D-dimer PT 13.5 Seconds (9.4-12.1) H 12/11/17 19:46 - Attending Attestation I examined this patient and my medical decision-making was reviewed with the Resident Physician on 12/14/17. I agree with the documented findings, disposition and treatment plan as described except to the extent set forth below. Ms Lopez is currently in observation for chest pain. She has a positive stress test and is to have [facility]. She remains moderate to high risk. Ms Lopez has no pain at this time. No fever or chills. Stress test positive. Cardiology to see and LHC today. No GI issues. Exam alert Comfortable sitting up Mucus membranes dry Heart reg No wheeze Abd soft No edema I/P 1. [place] 2. CAD LHC today Probable d/c tomorrow. <Kendall Smith - Last Filed: 12/14/17 14:54> (1) Chest pain Qualifiers: Chest pain type: unspecified Qualified Code(s): R07.9 - Chest pain, unspecified (5) HLD (hyperlipidemia) Qualifiers: Hyperlipidemia type: mixed hyperlipidemia Qualified Code(s): E78.2 - Mixed hyperlipidemia (6) HTN (hypertension) Qualifiers: Hypertension type: essential hypertension Qualified Code(s): I10 - Essential (primary) hypertension <Ramiro Luo - Last Filed: 12/14/17 17:34> (1) Chest pain Qualifiers: Chest pain type: chest pain due to myocardial ischemia Ischemic chest pain type: unstable angina pectoris Qualified Code(s): I20.0 - Unstable angina (4) Hypothyroid Qualifiers: Hypothyroidism type: acquired Qualified Code(s): E03.9 - Hypothyroidism, unspecified (5) HLD (hyperlipidemia) Qualifiers: Hyperlipidemia type: mixed hyperlipidemia Qualified Code(s): E78.2 - Mixed hyperlipidemia (6) HTN (hypertension) Qualifiers: Hypertension type: essential hypertension Qualified Code(s): I10 - Essential (primary) hypertension
[2017-12-14] MEDS ORDERED: Nitroglycerin 1,000 MCG/10 ML VIAL IV ONE (13:32)
[2017-12-14] MEDS ORDERED: ISOVUE-370 200 ML INFUS..BTL IV ONE ×2 (13:32→14:50)
[2017-12-14] MEDS ORDERED: 0.9 % Sodium Chloride 1,000 ML ONE ×2 (13:32→13:38)
[2017-12-14] MEDS ORDERED: *HR* Heparin 10,000 UNIT/10 ML VIAL ONE (13:32)
[2017-12-14] MEDS ORDERED: Heparin 1,000 UNITS/500 mL 500 ML ONE (13:32)
--- NOTE | 2017-12-14 13:45 | Pre-Sedation Evaluation ---
Pre-sedation evaluation - Pre-sedation checklist Date of procedure: 12/14/17 Procedure: [facility] Recent Vitals: Last Vital Signs Temp 98.1 F 12/14/17 10:43 Pulse 59 12/14/17 10:43 Resp 16 12/14/17 10:43 BP 153/67 12/14/17 10:43 Pulse Ox 93 12/14/17 10:43 H&P (including ROS) documented in medical record: Yes Previous reaction to sedatives/anesthetics: No Dietary Status: NPO after Midnight Airway Assessment: Patient can open mouth completely, TMJ function normal, Micrognathia (under-bite, receding chin) absent, Neck with adequate range of motion Dentition: No loose teeth or bridges Possible difficult airway: Yes If Yes;: Morbid obesity ASA Classification *see protocol: CLASS II-Mild systemic disease Plan of Care: Pt appropriate candidate for procedure/moderate/conscious sedation , Risks/benefits of procedure/sedation discussed w/ patient/family Cardiac Registry (Cardio Only) - Functional Capacity Functional Capacity: < 4 METS - Clincal Frailty Scale Clinical Frailty Scale: Vulnerable
[2017-12-14] MEDS ORDERED: *HR* Midazolam HCl 2 MG/2 ML VIAL ONE (14:14)
[2017-12-14] MEDS ORDERED: *HR* FentaNYL (PF) 100 MCG/2 ML VIAL ONE (14:15)
[2017-12-14] MEDS ORDERED: *HR* Atropine Sulfate 1 MG/10 ML SYRINGE ONE (14:40)
[2017-12-14] MEDS ORDERED: *HR* Bivalirudin 250 MG VIAL IVC ONE (14:49)
[2017-12-14] MEDS ORDERED: *HR* Ticagrelor 90 MG TABLET ONE (15:01)
--- NOTE | 2017-12-14 18:12 | Invasive Diagnostic Lab Proc ---
Name: Werner Lopez Date of Study: 12/14/2017 Date: 1945 Ht: 64.0in Medical Record#: [id number] Age: 72 Wt: 286.60lb Gender: Female BSA: 2.28 Order #: [id number] BMI: 49.17 Physicians Procedure Physician: Yuki Lockhart MD, [facility] Referring MD: Referring MD: Staff Name Position Time In Sites, Nadya RT (R) Monitor 02:11 PM Jalil Garcia RT (R) Scrub 02:11 PM Amarilis Topete RN Stone Repairer 02:11 PM Derek Aden RN Nurse 03:17 PM Indications Indication Abnormal Test - Stress Procedures Performed Procedure L HRT ARTERY/VENTRICLE ANGIO PRQ CARD TRACY STENT W/ANGIO 1 VSL IV Doppler BLD Flow 1st Vessel Pre-Procedure Checklist Informed consent is complete signed and on chart. H&P is on chart. ID band is on and ID verified with patient. Patient NPO for procedure The procedure was described for the patient and questions were answered. ECG is on chart. Plan of Care Patient will tolerate the procedure without complications. Adequate level of comfort will be maintained. Hemodynamics will remain stable Patient will recover from procedure without complications. Respiratory function will be maintained. Cardiac rhythm will remain stable. Patient temperature will be maintained. Patient and/or family have verbalized understanding of the procedure. Patient Education Intravenous Access Time IV Size Location DC'd Fluid/Drip Rate Units RN 20g 1 /" Patent On Arrival Lt Hand 0.9NaCl 50 ml/hr Amarilis Topete RN Allergies soap povidone-iodine Vital Signs Time BP (mmHg) HR (bpm) O2 Sat. RR (bpm) LOC 02:19 PM 106 / 59 63 100 % 18 02:24 PM 149 / 86 66 89 % 31 02:30 PM 164 / 65 66 98 % 26 02:34 PM 152 / 76 69 98 % 32 02:39 PM 161 / 71 67 99 % 43 02:44 PM 168 / 88 71 99 % 26 02:49 PM 181 / 75 73 99 % 19 02:54 PM 164 / 72 67 98 % 34 02:59 PM 163 / 74 66 99 % 26 03:04 PM 172 / 74 69 100 % 12 03:25 PM 147 / 66 62 100 % 16 03:34 PM 145 / 70 66 100 % 16 03:52 PM 144 / 66 59 100 % 16 04:00 PM 139 / 60 56 95 % 16 5 = Fully awake and oriented or at pre-proc level 04:15 PM 136 / 57 59 95 % 18 5 = Fully awake and oriented or at pre-proc level 04:32 PM 138 / 59 59 95 % 18 5 = Fully awake and oriented or at pre-proc level 04:45 PM 159 / 66 54 95 % 16 5 = Fully awake and oriented or at pre-proc level 05:05 PM 143 / 66 58 95 % 16 5 = Fully awake and oriented or at pre-proc level 05:15 PM 170 / 54 56 95 % 16 5 = Fully awake and oriented or at pre-proc level 05:30 PM 141 / 70 60 95 % 18 5 = Fully awake and oriented or at pre-proc level 05:45 PM 150 / 59 58 94 % 18 5 = Fully awake and oriented or at pre-proc level 06:00 PM 160 / 47 58 95 % 18 5 = Fully awake and oriented or at pre-proc level Procedural Medications Time Medication Dose Units Method Given By 02:11 PM Oxygen 2 L/min nasal cannula Amarilis Topete RN 02:18 PM Versed 2 mg Intravenous Amarilis Topete RN 02:18 PM Fentanyl 50 mcg Intravenous Amarilis Topete RN 02:22 PM Lidocaine 2% 19 ml Subcutaneous Yuki Lockhart MD, FAC 02:36 PM Angiomax 0.75mg/kg bolus: 19.5 ml Intravenous Amarilis Topete RN 02:37 PM Angiomax 1.75mg/kg/hr: 45.5 ml Intravenous Amarilis Topete RN 02:50 PM Nitroglycerin 200 mcg Intracoronary Yuki Lockhart MD, FAC 02:59 PM 90mg Adenosine in 90 ml 0.9 NS 999 ml/hr Intravenous Amarilis Topete RN 03:02 PM Brilinta 180 mg Orally Amarilis Topete RN Hollie Score Preprocedure Postprocedure Activity 2- Moves 4 extremities sustained head lift Activity 2- Moves 4 extremities sustained head lift Circulation 2- SBP +/= 20 points of pre-anesthetic level Circulation 2- SBP +/= 20 points of pre-anesthetic level Consciousness 2- Awake and alert oriented x 3 Consciousness 2- Awake and alert oriented x 3 O2 Saturation 2- Able to maintain O2 satruation of 92% on room air O2 Saturation 2- Able to maintain O2 satruation of 92% on room air Respiratory 2- Able to deep breathe and cough well Respiratory 2- Able to deep breathe and cough well Total Score 10 Total Score 10 Contrast Agent: Isovue Diagnostic Contrast: 137 ml Total Contrast: 137 ml Fluoro Dose: 42169 mGy Procedure Log Time Note Enter By 02:10 PM Pt arrived to labor and delivery nurse 2 at 13:53 scoates 02:10 PM Physician arrived 14:10 tsites 02:10 PM Meet and greet completed tsites 02:11 PM Sign in performed according to hospital policy. tsites 02:11 PM Procedure start 14:11 tsites 02:11 PM Nadya Spencer RT (R) Position: Monitor Time in: 14:11 tsites 02:11 PM Jalil Garcia RT (R) Position: Scrub Time in: 14:11 tsites 02:11 PM Amarilis Topete RN Position: Stone Repairer Time in: 14:11 tsites 02:11 PM Patient charges- Angio tray pack, Navilyst 3mm J, Pulse Oximetry and ACIST tubing and transducer tsites 02:11 PM Case Delayed No tsites 02:11 PM Time: 14:11 Oxygen on at 2 L/min per nasal cannula by Amarilis Topete RN tsites 02:15 PM Case Start 02:15 PM CathStat 02:15 PM Vitals capture started with the following parameters, Patient=Adult, Interval=5 min, Initial Lzwurbtd=563 mmHg, Deflation Rate=5 mmHg, Cuff placed on Right Arm 02:18 PM Vitals capture stopped. 02:18 PM Hair removed from procedure site in holding area using clippers. Bilateral groin prepped with Chloraprep by Nadya Spencer RT (R), then patient was draped. Skin intact. tsites 02:18 PM Time: 14:18 Versed 2 mg Intravenous Given by Amarilis Toepte RN tsites 02:18 PM Time: 14:18 Fentanyl 50 mcg Intravenous Given by Amarilis Topete RN tsites 02:18 PM Vitals capture started with the following parameters, Patient=Adult, Interval=5 min, Initial Ugxbiyxp=613 mmHg, Deflation Rate=5 mmHg, Cuff placed on Right Arm 02:19 PM HR=63 bpm, OCQX=674/59 mmhg, UpC7=915.0 %, Resp=18 B/min 02:19 PM Recorded ECG: HR=63 Condition=Condition 1 02:21 PM Clinical Presentation: Unstable angina tsites 02:22 PM Time out performed according to hospital policy tsites 02:24 PM Time: 14:22 19 ml Lidocaine 2% to right groin Subcutaneous Given by Yuki Lockhart MD, [facility] tsites 02:24 PM HR=66 bpm, VDJP=536/86 mmhg, SpO2=89.0 %, Resp=31 B/min 02:25 PM Access obtained by percutaneous puncture. 5Fr 10cm Terumo [place] sheath placed in right Femoral artery. [id number] tsites 02:25 PM 5Fr FL 4 catheter inserted over the wire [facility] tsites 02:25 PM 0.035 145cm Navilyst 3mmJ wire [id number] tsites 02:26 PM LCA angiography performed in multiple views. tsites 02:27 PM Recorded Pressure: Ao, HR=61, Condition=Condition 1 (Aorta) Ao 140/63/97 02:28 PM wire reinserted catheter removed tsites 02:28 PM 5Fr FR 4 catheter inserted over the wire [facility] tsites 02:30 PM HR=66 bpm, ZDJG=508/65 mmhg, SpO2=98.0 %, Resp=26 B/min 02:30 PM RCA angiography performed in multiple views. tsites 02:30 PM Recorded Pressure: Ao, HR=69, Condition=Condition 1 (Aorta) Ao 142/71/103 02:30 PM wire reinserted catheter removed tsites 02:30 PM 5Fr Pigtail catheter inserted over the wire [facility] tsites 02:31 PM Catheter selectively placed in left ventricle tsites 02:32 PM Pressure channel 1 zero failed. 02:33 PM Pressure channel 1 zeroed. 02:33 PM Recorded Pressure: LV, HR=67, Condition=Condition 1 (Left Ventricle) LV 159/-4/12 02:33 PM Bolus angiogram of left Ventricle complete: 10 ml/sec for a total of 20 mls tsites 02:33 PM Recorded Pressure: LV, Ao, HR=69, Condition=Condition 1 (Left Ventricle) LV 129/17/13, (Aorta) Ao 139/43/88 02:34 PM wire reinserted catheter removed tsites 02:34 PM Lesion found in Distal RCA. Pre Stenosis: 90 Pre ITZEL Flow: tsites 02:34 PM HR=69 bpm, SNDV=864/76 mmhg, SpO2=98.0 %, Resp=32 B/min 02:34 PM Right Coronary, Right Posterior Descending Arteries with Right Posterolateral and Acute Marginal branches with 90 % stenosis. If graft is supplying this area, 0 % stenosis tsites 02:34 PM Coronary Dominance: right tsites 02:34 PM PCI Status Urgent tsites 02:35 PM Sheath exchanged for a 6 Fr 11 cm Cordis [place] sheath [id number] tsites 02:35 PM Inflation device was opened. tsites 02:36 PM 6Fr JR 4 [place] Bright-Tip guide catheter was used to cannulate the PCI vessel successfully. reused? No tsites 02:36 PM Time: 14:36 Angiomax 0.75mg/kg bolus: 19.5 ml Intravenous Given by Amarilis Topete RN Carlson pump tsites 02:37 PM Time: 14:37 Angiomax 1.75mg/kg/hr: 45.5 ml Intravenous Given by Amarilis Topete RN Carlson pump tsites 02:39 PM Recorded Pressure: Ao, HR=67, Condition=Condition 1 (Aorta) Ao 152/43/86 02:39 PM .014 [place] 180cm guide wire across target lesion- successful. reused? No tsites 02:39 PM HR=67 bpm, MQZE=194/71 mmhg, SpO2=99 %, Resp=43 B/min 02:40 PM 2.5 mm x 12 mm Emerge Monorail balloon across target lesion- successful. reused? No tsites 02:43 PM Balloon inflated @ 8 hosea for 20 seconds tsites 02:44 PM Balloon inflated @ 10 hosea for 20 seconds tsites 02:44 PM HR=71 bpm, EBRH=903/88 mmhg, SpO2=99.0 %, Resp=26 B/min 02:45 PM Balloon inflated @ 12 hosea for 20 seconds tsites 02:45 PM Balloon catheter removed intact. tsites 02:47 PM 2.75mm x 24mm Synergy drug-eluting stent across target lesion- successful Lot #[id number] tsites 02:48 PM Stent deployed @ 12 hosea for 30 seconds tsites 02:49 PM HR=73 bpm, CBQC=237/75 mmhg, SpO2=99 %, Resp=19 B/min 02:49 PM Stent delivery system removed intact. tsites 02:50 PM Time: 14:50 Nitroglycerin 200 mcg Intracoronary Given by Yuki Lockhart MD, FACC tsites 02:54 PM [ Start FFR sample ] 02:54 PM HR=67 bpm, RDPL=401/72 mmhg, SpO2=98 %, Resp=34 B/min 02:57 PM Pressure channel 1 zeroed. 02:58 PM Asist FFR Catheter advanced to target lesion. tsites 02:59 PM Time: 14:59 90mg Adenosine in 90 ml 0.9 NS 999 ml/hr Intravenous Given by Amarilis Topete RN Carlson pump tsites 02:59 PM HR=66 bpm, MRGZ=598/74 mmhg, SpO2=99.0 %, Resp=26 B/min 03:01 PM Recorded Pressure: Ao, PV1, HR=74, Condition=Condition 1 (Aorta) Ao 127/49/82, (Portal Vein) PV1 114/115/73 03:01 PM FFR Measurement: 0.88 tsites 03:01 PM Flow Wire/Catheter removed intact tsites 03:01 PM Guide wire removed intact. tsites 03:01 PM Guide catheter removed intact. tsites 03:02 PM Bolus angiogram of right Femoral complete: 2 ml/sec for a total of 4 mls tsites 03:04 PM HR=69 bpm, ZEUV=457/74 mmhg, XuC1=323 %, Resp=12 B/min 03:04 PM Time: 15:02 Brilinta 180 mg Orally Given by Amarilis Topete RN tsites 03:06 PM Procedure completed at 15:06 12/14/2017 tsites 03:06 PM Did you address ITZEL flow and Dominance? Yes tsites 03:07 PM Sign out completed: Radiation Dose 1080 mGy, 04556 cGy/cm2 Fluoro Time: 7.8 Isovue 370 - 200ml contrast 137 ml given by Yuki Lockhart MD, [facility]. Complications: NoneCardiac Rehab Consult needed: YesConfirmed administered medications: Yes tsites 03:07 PM Isovue 370 - 200ml,23 Bottle(s) used. tsites 03:07 PM Sheath left in place to be pulled on floor/holding areaV+Pad tsites 03:07 PM Estimated Blood Loss: minimal tsites 03:08 PM Post ECG NSR tsites 03:08 PM Post Blood Pressure 172/74 tsites 03:09 PM 15:08 Post Pulses Bilateral DP & PT 1+ tsites 03:09 PM Information taught Cardiac Cath, PCI, and V+ Pad tsites 03:09 PM Education needs Procedure, Plan of Care, and Responsibilities of Patient in Care tsites 03:09 PM Learning barriers :None tsites 03:09 PM Education Methods Verbal tsites 03:09 PM Education evaluation Able to repeat information tsites 03:09 PM Site status No bleeding/hematoma - Rt Groin as reported by Jalil Garcia RT (R) at 15:09 tsites 03:09 PM Opsite applied tsites 03:11 PM Report given to vadim QUICK Pt taken to Holding room Room #3. 15:09 tsites 03:11 PM Plavix, Effient or Brilinta given Yes tsites 03:11 PM Delay to floor No tsites 03:11 PM Patient out of room: 15:11 tsites 03:11 PM Family placed in consult room. tsites 03:13 PM Lesion found in Proximal RCA. Pre Stenosis: 30 Pre ITZEL Flow: tsites 03:13 PM Lesion found in Mid RCA. Pre Stenosis: 50 Pre ITZEL Flow: tsites 03:14 PM Lesion found in Proximal LAD. Pre Stenosis: 25 Pre ITZEL Flow: tsites 03:14 PM Lesion found in Mid LAD. Pre Stenosis: 25 Pre ITZEL Flow: tsites 03:14 PM Lesion found in 1st Diagonal. Pre Stenosis: 30 Pre ITZEL Flow: tsites 03:14 PM Lesion found in Proximal Circumflex. Pre Stenosis: 25 Pre ITZEL Flow: tsites 03:14 PM Lesion found in Mid Circumflex. Pre Stenosis: 25 Pre ITZEL Flow: tsites 03:14 PM Lesion found in 1st Marginal. Pre Stenosis: 30 Pre ITZEL Flow: tsites 03:15 PM Proximal Left Anterior Descending Coronary Artery with 25% stenosis. If graft is supplying this territory, 0 % stenosis. tsites 03:15 PM Mid/Distal Left Anterior Descending Coronary Artery and diagonal branches with 30% stenosis. If graft is supplying this area, 0 % stenosis tsites 03:15 PM Circumflex, Obtuse Marginal, Left Posterior Descending, and Left Posterolateral Coronary Arteries with 30 % stenosis. If graft is supplying this area, 0 % stenosis tsites 03:15 PM Right Coronary, Right Posterior Descending Arteries with Right Posterolateral and Acute Marginal branches with 90 % stenosis. If graft is supplying this area, 0 % stenosis tsites 03:17 PM Derek Aden RN Position: Nurse Time in: 15:17 tsites 04:20 PM patient voided large amount per bedpan mprater 06:03 PM Arterial sheath pulled using manual compression and V+ Pad for 25 minutes by Ellen Domingo RN 06:04 PM Report given to Jeana QUICK Pt taken to 2N Room #6. 18:03 [email or web address] Complications Complication None Hemodynamics Pressures Site Systolic/A Wave Diastolic/V Wave Mean AO 140 63 97 AO 142 71 103 LV 159 -4 12 LV 129 17 13 AO 139 43 88 AO 152 43 86 AO 127 49 82 PV1 114 115 73 Post Procedure Information Blood Pressure: 172/74 mmHg Rhythm: NSR Post procedural instructions were given Closure Device Time Device Success/Fail 12/14/2017 3:11:00 PM V+Pad Successful Site Checks Time Location Status Staff Sheath In? Note 03:09 PM Rt Groin No bleeding/hematoma Jalil Garcia RT (R) 03:24 PM Rt Groin No bleeding/ No Hematoma Vadim Bedoya RN Yes 6 [place] sheath right groin 03:33 PM Rt Groin No bleeding/ No Hematoma Vadim Bedoya RN Yes 03:51 PM Rt Groin No bleeding/ No Hematoma Vadim Bedoya RN Yes 04:00 PM Rt Groin No bleeding/ No Hematoma Caryn Spears RN Yes 04:15 PM Rt Groin No bleeding/ No Hematoma Caryn Spears RN Yes 04:33 PM Rt Groin No bleeding/ No Hematoma Vadim Bedoya RN Yes 04:45 PM Rt Groin No bleeding/ No Hematoma Vadim Bedoya RN Yes 05:04 PM Rt Groin No bleeding/ No Hematoma Vadim Bedoya RN Yes 05:15 PM Rt Groin No bleeding/ No Hematoma Vadim Bedoya RN Sheath pulled held 25 minutes by Ellen Domingo RN 05:30 PM Rt Groin No bleeding/ No Hematoma Vadim Bedoya RN Pulses Time Site Pre-Procedure Post-Procedure Note 12/14/2017 1:53:00 PM Bilateral DP & PT 2+ 12/14/2017 1:53:00 PM Bilateral radial 2+ 3:08:00 PM Bilateral DP & PT 1+ 12/14/2017 3:25:00 PM Bilateral DP 1+ 12/14/2017 3:34:00 PM Bilateral DP 1+ 12/14/2017 3:51:00 PM Bilateral DP 1+ 12/14/2017 4:00:00 PM Bilateral DP & PT 1+ 12/14/2017 4:33:00 PM Bilateral DP 1+ 12/14/2017 4:45:00 PM Bilateral DP 1+ 12/14/2017 5:04:00 PM Bilateral DP 1+ Updated by Geraldine Martinez RN on 12/14/2017 6:04:50 PM electronically signed on 12/14/2017 6:05:39 PM with status of Final
[2017-12-15 06:08] LABS: BUN/Creatinine Ratio 15 (6-26); Blood Urea Nitrogen 11 mg/dL (8-23); Calcium 8.5 mg/dL (8.6-10.3); Carbon Dioxide 31 mEq/L (23-29); Chloride 99 mEq/L (98-107); Glucose 105 mg/dL (70-105); Osmolality,Calculated 286 (280-300); Potassium 3.8 mEq/L (3.5-5.1); Sodium 138 mEq/L (136-145); eGFR For Non-African Americans > 60 (> 60)
[2017-12-15 07:28] VITALS: BP 125/56
[2017-12-15] MEDS: Aspirin Enteric Coated 81 MG Tablet PO SCH (08:41)
--- NOTE | 2017-12-15 09:23 | Cardiology Progress Note ---
Date of Encounter: 12/15/17 Time of Encounter: 09:20 Assessment and Plan (1) CAD (coronary artery disease) Current Visit: Yes Status: Acute S/P LHC yesterday for abnormal stress test and chest pain. LHC revealed single vessel CAD--s/p successful PTCA/TRACY to distal RCA. 50% mLAD stenosis FFR 0.88. TTE EF preserved. Pt denies chest pain overnight. DAPT (ASA and Plavix) uninterrupted x 1 year. Pt verbalizes understanding. Continue Statin, BB, ARB. Cardiac rehab ordered. Right femoral access site healing well. No bleeding, hematoma or ecchymosis noted. Cardiology signing off. Reconsult PRN. Follow-up with Dr. Lopez in 1 week as already planned. Qualifiers: Coronary Disease-Associated Artery/Lesion type: [place] artery [place] vs. transplanted heart: [place] heart Associated angina: angina presence unspecified Qualified Code(s): I25.10 - Atherosclerotic heart disease of [place] coronary artery without angina pectoris Discussion w patient/family: The assessment and plan as outlined above was discussed with the patient and/or family members who expressed understanding and agreement. All questions were answered. Thank you for involving us in the care of your patient. Please call with any questions. I will discuss all the above with Dr. Morales and make changes as necessary Subjective Principal diagnosis: CAD s/p PCI Interval history: Abnormal stress test yesterday, s/p LHC revealed single vessel CAD. Received successful PTCA/TRACY to distal RCA. Pt denies acute complaints this AM--denies chest pain, reports dyspnea and cough have improved. Objective Vital Signs, Last 4 Hours Temp Pulse Resp BP Pulse Ox 12/15/17 07:27 98.2 F 64 18 125/56 94 Vital Signs Temp Pulse Pulse Resp BP Pulse Ox 12/15/17 07:27 98.2 F 64 18 125/56 94 12/15/17 04:00 98.4 F 62 18 159/48 98 12/14/17 23:33 98.6 F 63 17 153/63 98 12/14/17 23:00 63 162/58 12/14/17 21:00 66 118/104 12/14/17 20:00 68 137/27 12/14/17 19:37 97.6 F 70 18 169/76 98 12/14/17 19:15 65 69 164/92 98 12/14/17 18:55 62 62 18 155/76 98 12/14/17 18:45 65 65 18 148/67 99 12/14/17 18:30 62 62 20 172/67 97 12/14/17 18:22 60 60 18 168/65 99 12/14/17 18:15 97.6 F 58 58 18 99 12/14/17 10:43 98.1 F 59 16 153/67 93 Intake and Output 12/14/17 12/15/17 12/15/17 23:59 07:59 15:59 Intake Total 0 / 0 360 / 360 Output Total 900 / 900 500 / 500 Balance -900 / -900 -500 / -500 360 / 360 Intake: Oral 0 / 0 360 / 360 Output: Urine 900 / 900 500 / 500 Other: Meal Breakfast Percent of Meal Consumed 95% General: Conversant, No Apparent Distress HEENT: Atraumatic, Normocephaly, Mucus Membranes Moist Neck: No JVD, Normal carotid pulses Cardiac: Reg Rate and Rhythm, Normal S1 and S2, No Murmur Lungs: Normal Breath Sounds, No Wheeze, Rales, Rhonchi Neuro: Alert and responsive, No focal deficits noted Abdomen: Soft, Non-Tender Skin: Other (right femoral access site healing well. No bleeding or hematoma noted. Mild ecchymosis.) Musculoskeletal: No Chest Wall Tenderness Extremities: No Clubbing, No Cyanosis, No Edema, Normal Pulses Results 12/14/17 04:01 12/15/17 05:17 Lab Results 12/15/17 05:17 Sodium 138 Potassium 3.8 Chloride 99 Carbon Dioxide 31 H BUN 11 Creatinine 0.72 Glucose 105 Calcium 8.5 L BMP 12/15/17 Range/Units 05:17 Sodium 138 (136-145) mEq/L Potassium 3.8 (3.5-5.1) mEq/L Chloride 99 (98-107) mEq/L Carbon Dioxide 31 H (23-29) mEq/L BUN 11 (8-23) mg/dL Creatinine 0.72 (0.60-1.20) mg/dL Glucose 105 (70-105) mg/dL Calcium 8.5 L (8.6-10.3) mg/dL Active Medications Acetaminophen (Tylenol) 650 mg PO Q6HR PRN PRN Reason: Mild Pain/Fever Stop: 06/13/18 12:19 Hydrocodone Bitart/Acetaminophen ([place] 5-325 Mg) 1 tab PO Q6HR PRN PRN Reason: Moderate Pain Stop: 06/13/18 12:19 Last Admin: 12/12/17 12:53 Dose: 1 tab Aspirin (Aspirin Ec) 81 mg PO DAILY [facility] Stop: 06/13/18 09:01 Last Admin: 12/15/17 08:41 Dose: 81 mg Atorvastatin Calcium (Lipitor) 80 mg PO HS UMU Stop: 06/15/18 21:01 Last Admin: 12/14/17 20:47 Dose: 80 mg Benzonatate (Tessalon) 100 mg PO TID PRN PRN Reason: Cough Stop: 06/14/18 13:42 Last Admin: 12/14/17 18:32 Dose: 100 mg Chlorthalidone (Chlorthalidone) 12.5 mg PO DAILY [facility] Stop: 06/13/18 09:01 Last Admin: 12/15/17 08:41 Dose: 12.5 mg Clopidogrel Bisulfate (Plavix) 75 mg PO DAILY [facility] Stop: 06/16/18 09:01 Last Admin: 12/15/17 08:41 Dose: 75 mg Guaifenesin (Mucinex) 600 mg PO BID PRN PRN Reason: Congestion Stop: 06/14/18 10:55 Levothyroxine Sodium (Synthroid) 125 mcg PO 0630 [facility] Stop: 06/13/18 06:31 Last Admin: 12/15/17 05:58 Dose: 125 mcg Liothyronine Sodium (Cytomel) 5 mcg PO DAILY [facility] Stop: 06/14/18 09:01 Last Admin: 12/15/17 08:41 Dose: 5 mcg Losartan Potassium (Cozaar) 100 mg PO DAILY [facility] PRN Reason: Protocol Stop: 06/15/18 18:46 Last Admin: 12/15/17 08:42 Dose: 100 mg Metoprolol Tartrate (Lopressor) 25 mg PO BID [facility] Stop: 06/13/18 09:01 Last Admin: 12/15/17 08:41 Dose: 25 mg Naloxone HCl (Narcan) 0.4 mg IVP Q2MIN PRN PRN Reason: SEE COMMENTS Stop: 06/12/18 23:45 Nitroglycerin (Nitroglycerin) 0.4 mg SL Q5MIN PRN PRN Reason: Chest Pain Stop: 06/13/18 12:20 - Imaging and Cardiology Echo: report reviewed Cardiac cath: report reviewed - EKG Interpretation EKG results cardiology: other (12 hr tele AVG HR 63, SR, no significant pauses or arrhythmias noted.) Consult Discharge Plan - Plan Additional Instructions: RISK FACTORS: STOP SMOKING: If you smoke, STOP. Smoking or tobacco use significantly increases your risk of heart disease because nicotine causes the arteries to narrow or constrict. It also causes fats to stick to the artery. Your chances of having a heart attack are greatly increased if you continue to smoke. For more information, call the education line for smoking cessation 7-933-YCXXJQO EAT A LOW FAT/CHOLESTEROL/SODIUM DIET: This diet may help reduce your chances of having a heart attack. LIFTING: Avoid lifting anything more than 10 pounds for 5-7 days Prior to straining, laughing, sneezing and/or coughing, apply manual pressure directly over insertion site. ACTIVITY: You may walk or climb stairs as tolerated You can resume sexual activity as tolerated In general, you are encouraged to engage in a minimum of 30 minutes or more of moderate intensity physical activity, such as brisk walking, daily or at least 3 -4 times weekly BATHING Do not submerge the site into water (bath tub, hot tub, swimming pool) for 1 week. This can be a source for infection into the blood stream. You may shower after 24 hours SITE CARE: After 24 hours, you may remove the dressing and leave the site open to air. Keep the site clean and dry. Clean gently and pat dry. You can expect bruising and tenderness that gradually resolve within a week or two. Return to work as instructed per your physician Resume driving as instructed per physician Keep all scheduled follow up appointments Resume medications as instructed IMPORTANT: If prescribed a Platelet Aggregation Inhibitor such as, Plavix, Brilinta or Effient: Duration of therapy is minimum one year These medications are often used in combination with Aspirin in prevention of future heart attacks Never discontinue unless consult with your Water Treatment Plant Repairer STROKE (CVA) Risk factors for a stroke are: Age, cigarette smoking, diabetes, excessive alcohol consumption, family history, high blood pressure, overweight, physical inactivity, prior stroke, heart attack, diagnosis of carotid artery stenosis or other artery disease. Warning signs: Sudden numbness or weakness of the face, arm or leg; especially on one side of the body, sudden confusion, trouble speaking or understanding, sudden trouble seeing in one or both eyes, sudden trouble walking, dizziness, loss of balance or coordination, sudden severe headache with no cause. Call 911 or go to the Emergency Room. CONGESTIVE HEART FAILURE: If you have been diagnosed with Congestive Heart Failure (CHF) and your symptoms return, make an appointment with your physician Weigh yourself daily. Notify your physician if you have a weight gain of two or more pounds in one day or five or more pounds in one week. If you experience any difficulty breathing, please call 911 BLEEDING: Although the risk of bleeding is minimal, it can happen. If you have any bleeding from the site, apply firm pressure above the puncture site for 10-15 minutes. If the bleeding does not stop, continue manual pressure and call 911 Contact your physician if: You develop a fever greater than 101 degrees Fahrenheit Your site becomes reddened or has any drainage You have an increase in pain or burning at the site or if a large knot forms at the site. If you experience chest pain, shortness of breath, dizziness, or extreme tiredness, stop the activity and rest. Please notify your physicians office if you experience any of these symptoms and they are not relieved by rest please call 911! Referrals: Tavaers Hunter DO [Family Provider] - Yuki Lockhart MD [Partnered Physician] - (office will call patient at home with follow up appointment) Donna Catalan MD [Primary Care Provider] -
--- NOTE | 2017-12-15 09:33 | Discharge Summary ---
<Estephania Piper - Last Filed: 12/15/17 14:55> - NOTES TO OUTPATIENT PROVIDER Notes to Outpatient Provider: Patient had an abnormal stress test so C with TRACY to RCA. She will need DAPT uniterrupted for 1 year. Atorvastatin increased. Started on losartan, plavix. Following up with her integration project manager Dr. Lopez in 1 week. Will have cardiac rehab. Orders not resulted at time of discharge: Pending orders 12/13/17 07:00 NM gio perf SPECT multi [NM] Routine 12/15/17 06:00 ECG 12 lead ECG [ECG] AM 0600 Date of Encounter: 12/15/17 Time of Encounter: 09:31 - Discharge Diagnosis (1) Chest pain Priority: Primary Status: Acute Qualifiers: Chest pain type: chest pain due to myocardial ischemia Ischemic chest pain type: unstable angina pectoris Qualified Code(s): I20.0 - Unstable angina (2) Near syncope Priority: Secondary Status: Acute (3) Pulmonary nodule Priority: Secondary Status: Acute (4) Hypothyroid Priority: Secondary Status: Chronic Qualifiers: Hypothyroidism type: acquired Qualified Code(s): E03.9 - Hypothyroidism, unspecified (5) HLD (hyperlipidemia) Priority: Secondary Status: Chronic Qualifiers: Hyperlipidemia type: mixed hyperlipidemia Qualified Code(s): E78.2 - Mixed hyperlipidemia (6) HTN (hypertension) Priority: Secondary Status: Chronic Qualifiers: Hypertension type: essential hypertension Qualified Code(s): I10 - Essential (primary) hypertension Hospital course: Ms. Lopez is a 72 year old female who presented to the ED 12/11 with 1 day of nausea/vomiting/diarrhea at a family picnic. Additionally she had tunnel vision and felt weak. No known sick contacts/others sick after picnic. She complained of chest pain radiating to the neck. She was evaluated in the ED for ACS with negative troponin, CXR showed stable cardiomegaly, BNP 99. Per ROS: she denied orthopnea, LE swelling, shortness of breath. ECHO 2 months ago shows EF of 60%. She was admitted for chest pain rule-out. In the ER chest x-ray had no acute findings, EKG was NSR with Qtc of 430. No ST elevations. Her BUN and creatinine were elevated and GFR was 41. She denies history of renal problems. Troponins <0.03, BNP of 99. Echocardiogram 10/2017 that showed EF of 60%. Stress test was abnormal showing a perfusion defects. Cardiology was consulted and the patient elected to have a left heart catheterization. LHC revealed single vessel CAD--s/p successful PTCA/TRACY to distal RCA. 50% mLAD stenosis FFR 0.88. She tolerated the procedure well. She was then instructed to DAPT (ASA and Plavix) uninterrupted x 1 year along with cardiac rehab. Her atorvastatin was increased, she was started on losartan. She was instructed to continue beta yadira. She is to follow up with her integration project manager in one week. She was instructed to return to the ED should she develop increased chest pain. Her is at bedside. Upon discharge she was chest pain free, denied shortness of breath. The patient is alert and oriented times 3 and stated a clear understanding of the treatment and plan. Discharge discussed with: patient, family, nurse - Time Spent with Patient Total time spent providing and/or coordinating discharge services: Greater than 30 minutes - Discharge Medications Prescriptions: Atorvastatin [Lipitor] 80 mg PO HS #30 tablet Clopidogrel [Plavix] 75 mg PO DAILY #30 tablet Losartan [Cozaar] 100 mg PO DAILY #30 tablet Home Medications: Aspirin [Lo-Dose Aspirin EC] 81 mg PO DAILY 12/11/17 [History] Chlorthalidone 12.5 mg PO DAILY 12/11/17 [History] Fluticasone/Vilanterol [Breo Ellipta 100-25 Mcg INH] 1 puff IH DAILY 12/11/17 [ History] Levothyroxine [Synthroid] 125 mcg PO DAILY 12/11/17 [History] Liothyronine Sodium [Cytomel] 5 mcg PO BID 12/11/17 [History] Metoprolol [Lopressor] 25 mg PO BID 12/11/17 [History] DiphenhydraMINE [Benadryl] 25 mg PO HS PRN 12/14/17 [History] Irbesartan [Avapro] 300 mg PO DAILY 12/14/17 [History] Melatonin 5 mg PO HS PRN 12/14/17 [History] Vitamin B Complex [B Complex] 1 tab PO DAILY 12/14/17 [History] Atorvastatin [Lipitor] 80 mg PO HS #30 tablet 12/15/17 [Rx] Clopidogrel [Plavix] 75 mg PO DAILY #30 tablet 12/15/17 [Rx] Losartan [Cozaar] 100 mg PO DAILY #30 tablet 12/15/17 [Rx] Allergies/Adverse Reactions: 3 Allergy/AdvReac Type Severity Reaction Status Date / Time povidone-iodine Allergy Blister Verified 12/11/17 20:55 [From Betadine] soap [From Betadine] Allergy Blister Verified 12/11/17 20:55 Date of admission: 12/11/17 21:40 Primary care physician: Donna Catalan MD Consults: 12/14/17 13:20 Consult to Cardiology [CONS] Routine Comment: Consulting Provider: Cardiology Krista Reason for Consult: s/p stress testing, perfusion defects seen on inferolat and mid-ant wall, thank you; consult call was made via Dr. Luo Call Completed: Yes 12/14/17 15:12 Consult to Cardiac Rehabilitation-Phase1 [CONS] Routine Comment: Reason for Consult: post op PCI Call Completed: Yes Discharging clinician: Ramiro Luo Anticipated date of discharge: 12/15/17 - Constitutional Vitals: Temp Pulse Resp BP Pulse Ox 98.2 F 64 18 125/56 94 12/15/17 07:27 12/15/17 07:27 12/15/17 07:27 12/15/17 07:27 12/15/17 07:27 General appearance: Present: cooperative, A&O X 3, pleasant, no acute distress, answers questions appropriately Exam: General: Patient is alert, no acute distress, oriented x 3, answers questions appropriately. Head: normocephalic, atraumatic Respiratory: Good respiratory effort. Normal breath sounds. Diminished breath sounds bilateral bases. No wheezing or crackles. Cardiovascular: Regular rate and rhythm. s1 and s2 normal No clicks, rubs, gallops, or murmurs. No pedal edema no jvd. Abdomen: Abdomen is soft, nontender. Bowel sounds are present Ext/Musculoskeletal: Spontaneously moving all extremities, no calf tenderness Skin: warm, dry, intact, no cyanosis, no pitting edema Neuro: Alert oriented x 3, no slurring of speech or facial droop - Patient Status Disposition: Home, Self-Care Condition: Fair Functional capacity at discharge: independent ambulation Overall status at discharge: patient is back to baseline - Discharge Instructions Follow Up With: Donna Catalan MD [Primary Care Provider] - (called DrsMatheus office and left a message for them to call me back ) Sammy Lopez, [Partnered Physician] - 12/24/17 10:00 am Additional Instructions: -take aspirin and plavix daily uninterrupted for 1 year -start losartan -take the increased atorvastatin dose -follow up with Dr. Lopez in 1 week, do cardiac rehab -return to hospital should you have increased chest pain RISK FACTORS: STOP SMOKING: If you smoke, STOP. Smoking or tobacco use significantly increases your risk of heart disease because nicotine causes the arteries to narrow or constrict. It also causes fats to stick to the artery. Your chances of having a heart attack are greatly increased if you continue to smoke. For more information, call the education line for smoking cessation 6-942-BCNEVKV EAT A LOW FAT/CHOLESTEROL/SODIUM DIET: This diet may help reduce your chances of having a heart attack. LIFTING: Avoid lifting anything more than 10 pounds for 5-7 days Prior to straining, laughing, sneezing and/or coughing, apply manual pressure directly over insertion site. ACTIVITY: You may walk or climb stairs as tolerated You can resume sexual activity as tolerated In general, you are encouraged to engage in a minimum of 30 minutes or more of moderate intensity physical activity, such as brisk walking, daily or at least 3 -4 times weekly BATHING Do not submerge the site into water (bath tub, hot tub, swimming pool) for 1 week. This can be a source for infection into the blood stream. You may shower after 24 hours SITE CARE: After 24 hours, you may remove the dressing and leave the site open to air. Keep the site clean and dry. Clean gently and pat dry. You can expect bruising and tenderness that gradually resolve within a week or two. Return to work as instructed per your physician Resume driving as instructed per physician Keep all scheduled follow up appointments Resume medications as instructed IMPORTANT: If prescribed a Platelet Aggregation Inhibitor such as, Plavix, Brilinta or Effient: Duration of therapy is minimum one year These medications are often used in combination with Aspirin in prevention of future heart attacks Never discontinue unless consult with your Investigator Narcotics STROKE (CVA) Risk factors for a stroke are: Age, cigarette smoking, diabetes, excessive alcohol consumption, family history, high blood pressure, overweight, physical inactivity, prior stroke, heart attack, diagnosis of carotid artery stenosis or other artery disease. Warning signs: Sudden numbness or weakness of the face, arm or leg; especially on one side of the body, sudden confusion, trouble speaking or understanding, sudden trouble seeing in one or both eyes, sudden trouble walking, dizziness, loss of balance or coordination, sudden severe headache with no cause. Call 911 or go to the Emergency Room. CONGESTIVE HEART FAILURE: If you have been diagnosed with Congestive Heart Failure (CHF) and your symptoms return, make an appointment with your physician Weigh yourself daily. Notify your physician if you have a weight gain of two or more pounds in one day or five or more pounds in one week. If you experience any difficulty breathing, please call 911 BLEEDING: Although the risk of bleeding is minimal, it can happen. If you have any bleeding from the site, apply firm pressure above the puncture site for 10-15 minutes. If the bleeding does not stop, continue manual pressure and call 911 Contact your physician if: You develop a fever greater than 101 degrees Fahrenheit Your site becomes reddened or has any drainage You have an increase in pain or burning at the site or if a large knot forms at the site. If you experience chest pain, shortness of breath, dizziness, or extreme tiredness, stop the activity and rest. Please notify your physicians office if you experience any of these symptoms and they are not relieved by rest please call 911! - Diet and Activity Activity: resume usual activities as tolerated Diet: low salt diet <Ramiro Luo - Last Filed: 12/15/17 16:31> Date of Encounter: 12/15/17 - Discharge Diagnosis (1) Chest pain Status: Acute Qualifiers: Chest pain type: chest pain due to myocardial ischemia Ischemic chest pain type: unstable angina pectoris Qualified Code(s): I20.0 - Unstable angina (2) Near syncope Status: Acute (3) Pulmonary nodule Status: Acute (4) Hypothyroid Status: Chronic Qualifiers: Hypothyroidism type: acquired Qualified Code(s): E03.9 - Hypothyroidism, unspecified (5) HLD (hyperlipidemia) Status: Chronic Qualifiers: Hyperlipidemia type: mixed hyperlipidemia Qualified Code(s): E78.2 - Mixed hyperlipidemia (6) HTN (hypertension) Status: Chronic Qualifiers: Hypertension type: essential hypertension Qualified Code(s): I10 - Essential (primary) hypertension (7) CAD (coronary artery disease) Priority: Secondary Status: Chronic Qualifiers: Coronary Disease-Associated Artery/Lesion type: [place] artery [place] vs. transplanted heart: [place] heart Associated angina: with unstable angina Qualified Code(s): I25.110 - Atherosclerotic heart disease of [place] coronary artery with unstable angina pectoris (8) Morbid obesity with BMI of 45.0-49.9, adult Priority: Secondary Status: Chronic Hospital course: Ms. Lopez is a 72 year old female - Time Spent with Patient Total time spent providing and/or coordinating discharge services: 38min Date of admission: 12/15/17 07:42 Primary care physician: Donna Catalan MD - Constitutional Vitals: Temp Pulse Resp BP Pulse Ox 98.2 F 64 18 125/56 94 12/15/17 07:27 12/15/17 07:27 12/15/17 07:27 12/15/17 07:27 12/15/17 07:27 - Attending Attestation I examined this patient and my medical decision-making was reviewed with the Resident Physician on 12/15/17. I agree with the documented findings, disposition and treatment plan as described except to the extent set forth below. Ms Lopez has been admitted for chest pain. She was found to have abnormal stress and had LHC with TRACY to RCA. She feels good at this time. She is afebrile and ready for discharge home. Exam Alert Comfortable at bedside Mucus membranes dry Heart reg No wheeze Plan D/C home today
[2017-12-15] MEDS ORDERED: Adenosine 90 MG/30 ML MLS IV ONE (12:16)
--- NOTE | 2017-12-15 17:48 | Electrocardiograph Report ---
[place] [id number] Test Date: 2017-12-14 Pat Name: Werner Lopez Department: 110 Room: [facility] Gender: F Commercial Mortgage Broker: : [id number] Requested By: Yuki Lockhart Order Number: [id number] Reading MD: Sammy Lopez Measurements Intervals [place] Rate: 61 P: 31 AK: 150 QRS: 31 QRSD: 86 T: 53 QT: 427 QTc: 431 Interpretive Statements SINUS RHYTHM LOW QRS VOLTAGE IN PRECORDIAL LEADS Electronically Signed On 12-15-2017 17:46:52 EDT by Sammy Lopez
--- NOTE | 2017-12-16 14:38 | Electrocardiograph Report ---
[place] [id number] Test Date: 2017-12-11 Pat Name: Werner Lopez Department: EXAM9 Room: 2N06 Gender: F Book Publisher: : 1945 Requested By: [id number] Order Number: [id number] Reading MD: Bentley Romeo Measurements Intervals [place] Rate: 77 P: 52 DE: 152 QRS: 53 QRSD: 97 T: 52 QT: 380 QTc: 430 Interpretive Statements Sinus rhythm Low voltage, precordial leads Electronically Signed On 12-16-2017 14:36:56 EDT by Bentley Romeo
== END 2017-12-15 12:17 | disposition home or self-care (01) | DRG 247 ==
LOC: EMEROOARM 19:41 → 3BNU 19:41 → SUATTDRO 21:40 → 3BNU 22:51 → 2NNU 12-14 14:50
PROVIDERS: ADMIT Pediatrics; ATTEND Internal Medicine

== ENCOUNTER 2019-10-09 14:36 | Inpatient (IN) ==
[2019-10-09 15:59] LABS: Eosinophils % 0.7 %; Hemoglobin 8.3 g/dL (11.5-15.4); Immature Granulocytes % 0.5 % (0-4); Lymphocytes # 0.8 K/mcL (0.6-4.6); Lymphocytes % 18.3 %; Mean Corpuscular HGB Conc 30.7 g/dL (31.6-35.5); Mean Corpuscular Hemoglobin 29.4 pg (28.0-33.3); Mean Corpuscular Volume 95.7 fL (83.0-100.0); Mean Platelet Volume 9.4 fL (9.4-12.4); Monocytes # 0.4 K/mcL (0.0-1.3); Monocytes % 8.4 %; Nucleated Red Blood Cells 0.5 /100 WBC (0); Platelet Count 160 K/mcL (140-400); Red Blood Count 2.82 M/mcL (3.82-4.97); Red Cell Distribution Width 19.5 % (11.5-14.5); Segmented Neutrophils % 71.1 %; White Blood Count 4.2 K/mcL (4.3-11.1)
[2019-10-09 16:11] LABS: BUN/Creatinine Ratio 16 (6-26); Blood Urea Nitrogen 11 mg/dL (8-23); Calcium 6.8 mg/dL (8.6-10.3); Carbon Dioxide 33 mEq/L (23-29); Chloride 96 mEq/L (98-107); Glucose 106 mg/dL (70-105); Osmolality,Calculated 284 (280-300); Potassium 3.3 mEq/L (3.5-5.1); Sodium 137 mEq/L (136-145); eGFR For African Americans > 60 (> 60); eGFR For Non-African Americans > 60 (> 60)
[2019-10-09 16:12] LABS: Troponin I 0.03 ng/mL (< 0.04)
[2019-10-09 16:34] LABS: Bilirubin,Urine Negative (Negative); Blood,Urine Trace (Negative); Clarity,Urine Clear (Clear); Color,Urine Light-Yellow (Yellow); Glucose,Urine (UA) Normal (Normal); Ketones,Urine Negative (Negative); Leukocyte Esterase,Urine Trace (Negative); Mucus,Urine Few per lpf (None-Few); Nitrite,Urine Negative (Negative); Protein,Urine Trace mg/dL (Neg-Trace); Squamous Epithelial Cell,Urine Few per hpf (None-Few); Urobilinogen,Urine Normal (Normal)
[2019-10-09] MEDS ORDERED: Furosemide 40 MG/4 ML VIAL IVP ONE (17:00)
[2019-10-09] MEDS ORDERED: Naloxone 0.4 MG/ML INJ IVP PRN (17:41)
[2019-10-09] MEDS ORDERED: Calcium Gluconate 1gm/50mL 1 GM/50 ML BAG IVPB ONE (17:48)
[2019-10-09] MEDS ORDERED: Furosemide 40 MG in 0.9 % Sodium Chloride 50 ML IV SCH (21:00)
[2019-10-10 05:09] LABS: Basophils % 0.7 %; Eosinophils # 0.1 K/mcL (0.0-0.6); Eosinophils % 1.5 %; Hemoglobin 8.2 g/dL (11.5-15.4); Immature Granulocytes % 0.5 % (0-4); Lymphocytes # 0.9 K/mcL (0.6-4.6); Lymphocytes % 21.2 %; Mean Corpuscular HGB Conc 30.4 g/dL (31.6-35.5); Mean Corpuscular Hemoglobin 29.2 pg (28.0-33.3); Mean Corpuscular Volume 96.1 fL (83.0-100.0); Mean Platelet Volume 9.5 fL (9.4-12.4); Monocytes # 0.3 K/mcL (0.0-1.3); Monocytes % 7.7 %; Neutrophils # 2.7 K/mcL (1.6-8.9); Platelet Count 150 K/mcL (140-400); Red Blood Count 2.81 M/mcL (3.82-4.97); Red Cell Distribution Width 19.4 % (11.5-14.5); Segmented Neutrophils % 68.4 %
[2019-10-10 05:22] LABS: BUN/Creatinine Ratio 13 (6-26); Blood Urea Nitrogen 11 mg/dL (8-23); Calcium 6.7 mg/dL (8.6-10.3); Carbon Dioxide 34 mEq/L (23-29); Chloride 96 mEq/L (98-107); Glucose 96 mg/dL (70-105); Osmolality,Calculated 287 (280-300); Potassium 3.4 mEq/L (3.5-5.1); Sodium 139 mEq/L (136-145); eGFR For African Americans > 60 (> 60); eGFR For Non-African Americans > 60 (> 60)
[2019-10-10] MEDS ORDERED: Diphenoxylate/Atropine 1 TAB TABLET PO PRN (07:24)
[2019-10-10] MEDS ORDERED: Calcium Gluconate 1gm/50mL 1 GM/50 ML BAG IVPB ONE ×2 (07:29→18:22)
[2019-10-10] MEDS: Aspirin Enteric Coated 81 MG Tablet PO SCH (07:49)
[2019-10-10] MEDS: *HR* Rivaroxaban 10 MG TABLET PO SCH (07:49)
[2019-10-10] MEDS: Furosemide 40 MG/4 ML VIAL IVP SCH ×2 (07:50→15:48)
[2019-10-10] MEDS: Lenalidomide [Revlimid] 15 MG PO SCH (07:55)
[2019-10-10] MEDS: Budesonide/Formoterol 160/4.5 1 PUFF INH IH SCH (10:28)
[2019-10-10] MEDS ORDERED: Ringers Solution, Lactated 1,000 ML ONE (13:15)
[2019-10-10 17:57] LABS: BUN/Creatinine Ratio 15 (6-26); Blood Urea Nitrogen 13 mg/dL (8-23); Calcium 6.9 mg/dL (8.6-10.3); Carbon Dioxide 35 mEq/L (23-29); Chloride 95 mEq/L (98-107); Glucose 114 mg/dL (70-105); Osmolality,Calculated 285 (280-300); Potassium 3.5 mEq/L (3.5-5.1); Sodium 137 mEq/L (136-145); eGFR For African Americans > 60 (> 60); eGFR For Non-African Americans > 60 (> 60)
[2019-10-10] MEDS: Acyclovir 200 MG CAPSULE PO SCH (20:06)
[2019-10-11 03:19] LABS: Basophils % 0.4 %; Eosinophils # 0.1 K/mcL (0.0-0.6); Hematocrit 27.7 % (35.3-44.9); Hemoglobin 8.5 g/dL (11.5-15.4); Immature Granulocytes % 0.4 % (0-4); Lymphocytes # 1.1 K/mcL (0.6-4.6); Lymphocytes % 21.5 %; Mean Corpuscular HGB Conc 30.7 g/dL (31.6-35.5); Mean Corpuscular Hemoglobin 29.6 pg (28.0-33.3); Mean Corpuscular Volume 96.5 fL (83.0-100.0); Mean Platelet Volume 9.4 fL (9.4-12.4); Monocytes # 0.4 K/mcL (0.0-1.3); Monocytes % 7.1 %; Neutrophils # 3.4 K/mcL (1.6-8.9); Platelet Count 152 K/mcL (140-400); Red Blood Count 2.87 M/mcL (3.82-4.97); Red Cell Distribution Width 19.4 % (11.5-14.5); Segmented Neutrophils % 68.6 %; White Blood Count 4.9 K/mcL (4.3-11.1)
[2019-10-11 03:42] LABS: BUN/Creatinine Ratio 21 (6-26); Blood Urea Nitrogen 17 mg/dL (8-23); Calcium 6.7 mg/dL (8.6-10.3); Carbon Dioxide 36 mEq/L (23-29); Chloride 95 mEq/L (98-107); Glucose 94 mg/dL (70-105); Osmolality,Calculated 287 (280-300); Potassium 3.4 mEq/L (3.5-5.1); Sodium 138 mEq/L (136-145); eGFR For African Americans > 60 (> 60); eGFR For Non-African Americans > 60 (> 60)
[2019-10-11] MEDS: Budesonide/Formoterol 160/4.5 1 PUFF INH IH SCH (07:37)
[2019-10-11 09:21] LABS: Magnesium 1.4 mg/dL (1.6-2.6); Phosphorous 3.6 mg/dL (2.7-4.5)
[2019-10-11] MEDS: *HR* Rivaroxaban 10 MG TABLET PO SCH (10:12)
[2019-10-11] MEDS: Aspirin Enteric Coated 81 MG Tablet PO SCH (10:13)
[2019-10-11] MEDS: Acyclovir 200 MG CAPSULE PO SCH (10:13)
[2019-10-11 10:40] VITALS: BP 120/66
[2019-10-11] MEDS: Lenalidomide [Revlimid] 15 MG PO SCH (12:06)
== END 2019-10-11 14:07 | disposition home or self-care (01) | DRG 291 ==
LOC: 3BNU 14:36 → EMEROOARM 14:36 → 3BNU 19:37
PROVIDERS: ADMIT Internal Medicine; ATTEND Internal Medicine

== ENCOUNTER 2019-10-26 13:34 | Inpatient (IN) ==
[2019-10-26] MEDS ORDERED: 0.9 % Sodium Chloride 1,000 ML IVC ONE (13:49)
[2019-10-26] MEDS ORDERED: Isovue-370 500 ML BOTTLE IVP ONE (14:06)
[2019-10-26 14:23] LABS: Basophils % 0.1 %; Eosinophils % 0.5 %; Hematocrit 29.7 % (35.3-44.9); Hemoglobin 9.2 g/dL (11.5-15.4); Immature Granulocytes % 0.8 % (0-4); Lymphocytes # 0.9 K/mcL (0.6-4.6); Mean Corpuscular Hemoglobin 29.5 pg (28.0-33.3); Mean Corpuscular Volume 95.2 fL (83.0-100.0); Mean Platelet Volume 11.1 fL (9.4-12.4); Platelet Count 181 K/mcL (140-400); Red Blood Count 3.12 M/mcL (3.82-4.97); Red Cell Distribution Width 18.3 % (11.5-14.5); Segmented Neutrophils % 75.6 %; White Blood Count 7.9 K/mcL (4.3-11.1)
[2019-10-26 14:29] LABS: INR 3.8
[2019-10-26 14:32] LABS: Activated Partial Thrombo Time 38.7 Seconds (26.0-36.0)
[2019-10-26 14:40] LABS: Prothrombin Time 43.5 Seconds (9.4-12.1)
[2019-10-26] MEDS: DilTIAZem 50 MG in 0.9 % Sodium Chloride 40 ML IVC SCH ×2 (14:56→22:53)
[2019-10-26] MEDS ORDERED: Furosemide 40 MG/4 ML VIAL IVP ONE (14:58)
[2019-10-26 15:13] LABS: Bilirubin,Urine Negative (Negative); Blood,Urine Small (Negative); Clarity,Urine Clear (Clear); Color,Urine Light-Yellow (Yellow); Glucose,Urine (UA) Normal (Normal); Ketones,Urine Negative (Negative); Leukocyte Esterase,Urine Negative (Negative); Mucus,Urine Few per lpf (None-Few); Nitrite,Urine Negative (Negative); Protein,Urine Trace mg/dL (Neg-Trace); Specific Gravity,Urine 1.009 (1.010-1.025); Squamous Epithelial Cell,Urine Few per hpf (None-Few); Urobilinogen,Urine Normal (Normal); WBC,Urine 0-3 per hpf (0-3)
[2019-10-26 15:14] LABS: BUN/Creatinine Ratio 22 (6-26); Blood Urea Nitrogen 18 mg/dL (8-23); Calcium 7.8 mg/dL (8.6-10.3); Carbon Dioxide 26 mEq/L (23-29); Chloride 95 mEq/L (98-107); Glucose 134 mg/dL (70-105); Magnesium 1.7 mg/dL (1.6-2.6); Osmolality,Calculated 278 (280-300); Potassium 3.6 mEq/L (3.5-5.1); Sodium 132 mEq/L (136-145); Troponin I 0.07 ng/mL (< 0.04); eGFR For African Americans > 60 (> 60); eGFR For Non-African Americans > 60 (> 60)
[2019-10-26 15:18] LABS: Thyroid Stimulating Hormone 0.983 mcIU/mL (0.340-5.600)
[2019-10-26] MEDS ORDERED: Aspirin 325 MG TABLET PO ONE (15:21)
[2019-10-26] MEDS ORDERED: Naloxone 0.4 MG/ML INJ IVP PRN (17:15)
[2019-10-26] MEDS ORDERED: *HR* Metoprolol 5 MG/5 ML VIAL IVP PRN (17:19)
[2019-10-26 18:00] LABS: Adenovirus Not Detected (Not Detect); Bordetella Pertussis Not Detected (Not Detect); Chlamydophila pneumoniae Not Detected (Not Detect); Coronavirus 229E Not Detected (Not Detect); Coronavirus HKU1 Not Detected (Not Detect); Coronavirus NL63 Not Detected (Not Detect); Coronavirus OC43 Not Detected (Not Detect); Human Metapneumovirus Not Detected (Not Detect); Human Rhinovirus/Enterovirus Not Detected (Not Detect); Influenza A Subtype 2009 H1 Not Detected (Not Detect); Influenza B Not Detected (Not Detect); Mycoplasma pneumoniae Not Detected (Not Detect); Parainfluenza Virus 1 Not Detected (Not Detect); Parainfluenza Virus 2 Not Detected (Not Detect); Parainfluenza Virus 3 Not Detected (Not Detect); Parainfluenza Virus 4 Not Detected (Not Detect); Respiratory Syncytial Virus Not Detected (Not Detect); SARS-CoV-2 Not Detected (Not Detect)
[2019-10-26] MEDS: Magnesium Oxide 400 MG TABLET PO SCH (20:41)
[2019-10-26] MEDS: Budesonide/Formoterol 160/4.5 1 PUFF INH IH SCH (21:47)
[2019-10-27 04:47] LABS: Basophils % 0.1 %; Eosinophils # 0.1 K/mcL (0.0-0.6); Eosinophils % 0.9 %; Hematocrit 25.8 % (35.3-44.9); Hemoglobin 8.1 g/dL (11.5-15.4); Immature Granulocytes % 0.4 % (0-4); Immature Platelets 5.9 % (1.1-6.1); Lymphocytes # 0.8 K/mcL (0.6-4.6); Lymphocytes % 11.6 %; Mean Corpuscular HGB Conc 31.4 g/dL (31.6-35.5); Mean Corpuscular Hemoglobin 30.7 pg (28.0-33.3); Mean Corpuscular Volume 97.7 fL (83.0-100.0); Monocytes # 0.9 K/mcL (0.0-1.3); Monocytes % 12.4 %; Neutrophils # 5.2 K/mcL (1.6-8.9); Platelet Count 140 K/mcL (140-400); Red Blood Count 2.64 M/mcL (3.82-4.97); Red Cell Distribution Width 18.5 % (11.5-14.5); Segmented Neutrophils % 74.6 %; White Blood Count 6.9 K/mcL (4.3-11.1)
[2019-10-27 05:07] LABS: BUN/Creatinine Ratio 19 (6-26); Blood Urea Nitrogen 17 mg/dL (8-23); Calcium 7.2 mg/dL (8.6-10.3); Carbon Dioxide 29 mEq/L (23-29); Chloride 98 mEq/L (98-107); Glucose 121 mg/dL (70-105); Osmolality,Calculated 283 (280-300); Phosphorous 4.3 mg/dL (2.7-4.5); Potassium 3.6 mEq/L (3.5-5.1); Sodium 135 mEq/L (136-145); eGFR For African Americans > 60 (> 60); eGFR For Non-African Americans > 60 (> 60)
[2019-10-27 05:10] LABS: Troponin I 0.04 ng/mL (< 0.04)
[2019-10-27] MEDS: Budesonide/Formoterol 160/4.5 1 PUFF INH IH SCH ×2 (07:55→21:00)
[2019-10-27] MEDS: Aspirin Enteric Coated 81 MG Tablet PO SCH (08:39)
[2019-10-27] MEDS: Magnesium Oxide 400 MG TABLET PO SCH ×2 (08:39→20:51)
[2019-10-27] MEDS: DilTIAZem 50 MG in 0.9 % Sodium Chloride 40 ML IVC SCH (09:30)
[2019-10-27] MEDS ORDERED: *HR* Rivaroxaban 10 MG TABLET PO SCH (17:00)
[2019-10-28] MEDS: DilTIAZem 50 MG in 0.9 % Sodium Chloride 40 ML IVC SCH (04:29)
[2019-10-28] MEDS: Budesonide/Formoterol 160/4.5 1 PUFF INH IH SCH (08:06)
[2019-10-28] MEDS: Aspirin Enteric Coated 81 MG Tablet PO SCH (08:26)
[2019-10-28] MEDS: Magnesium Oxide 400 MG TABLET PO SCH (08:27)
[2019-10-28 11:01] VITALS: BP 100/66
== END 2019-10-28 13:49 | disposition home or self-care (01) | DRG 309 ==
LOC: EMEROOARM 13:34 → 2ANU 13:34 → SUATTDRO 18:04 → 2ANU 18:25
PROVIDERS: ADMIT Internal Medicine; ATTEND Internal Medicine

== ENCOUNTER 2022-01-30 01:47 | Observation (INO) ==
[2022-01-30] MEDS ORDERED: Iopamidol - 370 500 ML MLS IVP ONE (02:24)
[2022-01-30 02:30] LABS: Hematocrit 39.5 % (35.3-44.9); Immature Granulocytes % 0.3 % (0-4); Lymphocytes # 0.9 K/mcL (0.6-4.6); Lymphocytes % 23.3 %; Mean Corpuscular HGB Conc 32.9 g/dL (31.6-35.5); Mean Corpuscular Hemoglobin 30.6 pg (28.0-33.3); Mean Corpuscular Volume 92.9 fL (83.0-100.0); Mean Platelet Volume 9.1 fL (9.4-12.4); Monocytes # 0.3 K/mcL (0.0-1.3); Monocytes % 7.6 %; Neutrophils # 2.5 K/mcL (1.6-8.9); Platelet Count 210 K/mcL (140-400); Red Blood Count 4.25 M/mcL (3.82-4.97); Red Cell Distribution Width 13.8 % (11.5-14.5); Segmented Neutrophils % 68.8 %; White Blood Count 3.7 K/mcL (4.3-11.1)
[2022-01-30] MEDS: DilTIAZem 50 MG/50 ML IV.SOLN IVC SCH ×3 (02:30→12:00)
[2022-01-30 02:50] LABS: BUN/Creatinine Ratio 22 (6-26); Blood Urea Nitrogen 25 mg/dL (8-23); Calcium 9.1 mg/dL (8.6-10.3); Carbon Dioxide 31 mEq/L (23-29); Chloride 99 mEq/L (98-107); Glucose 148 mg/dL (70-105); Osmolality,Calculated 299 (280-300); Potassium 3.5 mEq/L (3.5-5.1); Sodium 141 mEq/L (136-145)
[2022-01-30 02:52] LABS: Troponin I < 0.03 ng/mL (< 0.04)
[2022-01-30] MEDS ORDERED: Naloxone 0.4 MG/ML INJ IVP PRN (04:49)
[2022-01-30] MEDS ORDERED: Melatonin 3 MG TABLET PO PRN (04:49)
[2022-01-30] MEDS ORDERED: Ondansetron ODT 4 MG TAB.RAPDIS SL PRN (04:49)
[2022-01-30] MEDS ORDERED: Acetaminophen 325 MG TABLET PO PRN (04:49)
[2022-01-30 04:57] LABS: INR 3.8; Prothrombin Time 42.3 Seconds (9.4-12.1)
[2022-01-30] MEDS ORDERED: Ipratropium 1 PUFF INHALER IH PRN (06:36)
[2022-01-30 06:52] LABS: Hemoglobin 12.8 g/dL (11.5-15.4); Immature Granulocytes % 0.4 % (0-4); Lymphocytes % 29.3 %; Mean Corpuscular HGB Conc 32.8 g/dL (31.6-35.5); Mean Corpuscular Hemoglobin 30.6 pg (28.0-33.3); Mean Corpuscular Volume 93.3 fL (83.0-100.0); Mean Platelet Volume 8.9 fL (9.4-12.4); Monocytes % 11.2 %; Platelet Count 219 K/mcL (140-400); Red Blood Count 4.18 M/mcL (3.82-4.97); Red Cell Distribution Width 13.9 % (11.5-14.5); Segmented Neutrophils % 58.9 %
[2022-01-30 06:53] LABS: Basophils % 0.2 %; Lymphocytes # 1.5 K/mcL (0.6-4.6); Monocytes # 0.6 K/mcL (0.0-1.3)
[2022-01-30 07:00] LABS: INR 3.9
[2022-01-30 07:02] LABS: Activated Partial Thrombo Time 41.5 Seconds (26.0-36.0)
[2022-01-30 07:11] LABS: Albumin 3.6 g/dL (3.5-5.7); Albumin/Globulin Ratio 1.2 (1.1-2.2); Bilirubin,Total 0.4 mg/dL (0.3-1.0); Calcium 8.9 mg/dL (8.6-10.3); Globulin 2.9 g/dL (2.4-3.5); Phosphorous 4.3 mg/dL (2.7-4.5); Potassium 3.7 mEq/L (3.5-5.1); Total Protein 6.5 g/dL (6.4-8.9); Troponin I 0.03 ng/mL (< 0.04)
[2022-01-30 07:14] LABS: Prothrombin Time 43.4 Seconds (9.4-12.1)
[2022-01-30] MEDS ORDERED: DilTIAZem CD (24hr) 120 MG CAP.ER.24H PO SCH (09:00)
[2022-01-30] MEDS ORDERED: predniSONE 20 MG TABLET PO SCH (09:00)
[2022-01-30] MEDS ORDERED: Metoprolol XL (24 HR) Succ 50 MG TAB.ER.24H PO SCH (09:00)
[2022-01-30] MEDS ORDERED: Budesonide/Formoterol 160/4.5 1 PUFF INH IH SCH (10:00)
[2022-01-30] MEDS: Ipratropium 1 PUFF INHALER IH SCH ×2 (11:13→15:55)
[2022-01-30 12:03] LABS: Thyroid Stimulating Hormone 0.304 mcIU/mL (0.340-5.600); Troponin I 0.03 ng/mL (< 0.04)
[2022-01-30 15:08] VITALS: BP 130/72; PULSE 74; TEMP 97.2; O2SAT 98
[2022-01-30] MEDS ORDERED: Warfarin perPT PO PRN (18:00)
== END 2022-01-30 17:00 | disposition home or self-care (01) ==
LOC: EMEROOARM 01:47 → 3NENU 01:47 → SUATTDRO 11:52 → 3NENU 13:47
PROVIDERS: ADMIT Internal Medicine; ATTEND Internal Medicine